=== PATIENT | female | born 1940 | race Caucasian/White ===

== ENCOUNTER 2019-10-06 00:22 | Day surgery (SDC) | payer MEDICARE, SELFPAY ==
[2019-09-22 13:10] VITALS: BMI 34.4
--- NOTE | 2019-10-05 12:53 | HP_ITS ---
DATE OF SERVICE: 10/06/2019 HISTORY: A 78-year-old who is here for a followup on her thyroid. She has 2 parathyroid adenomas of the foci of persistent activity in the area of the superior and inferior left thyroid lobe suspicious for multiple parathyroid adenomas. PHYSICAL EXAMINATION: CHEST: Clear. HEART: Without murmurs. ABDOMEN: Soft. EXTREMITIES: Negative. REVIEW OF SYSTEMS: Unremarkable. PLAN: Parathyroid exploration, parathyroidectomy. D I MT: Chikis
--- NOTE | ~2019-10-06 | NM_ITS ---
EXAMINATION: NM parathyroid injection only DATE: 10/06/2019 14:35 INDICATION: Localization of parathyroid adenoma for parathyroidectomy TECHNIQUE: 5.5 mCi Tc99m sestamibi (Cardiolite) was administered by intravenous route for localizatio n during planned parathyroidectomy by Dr. Dunn. No imaging was obtained. FINDINGS/IMPRESSION: Radiotracer injection for parathyroid adenoma localization. No imaging obtained. See procedure note f or further detail. Reviewed, dictated and finalized at location A. 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
--- NOTE | 2019-10-06 06:01 | WPDHPUPDATE1 ---
History and Physical Update Update Date/Time: 10/06/19 06:01 History and Physical has been reviewed, including an updated exam of the patient. There are NO changes in the patient's condition. Risks, benefits, and alternatives have been discussed and questions answered. Patient agrees to proceed with procedure.
[2019-10-06] MEDS: LACTATED RINGERS 1,000 ML 30 ML IV CONT ×2 (08:30→11:13)
[2019-10-06 08:37] LABS: Glucose Point of Care 103 (65-105)
--- NOTE | 2019-10-06 09:07 | WPDANESEPPF ---
Anes - Initial Pre Proc Eval Procedure: Operation Date: 10/06/19 10:30 Proposed Procedures p Parathyroid Exploration - Gasper Dunn MD Date/Time: 10/06/19 09:07 Surgeon: Gasper Dunn MD Pre Op Diagnosis: Parathyroid Adenoma Patient Data Age: 78 Gender: F Height: 5 ft 6 in Weight: 96.8 kg Allergies Allergy/AdvReac Type Severity Reaction Status Date / Time celecoxib Allergy Severe RASH Verified 09/22/19 13:01 iodine Allergy Severe Rash Verified 09/22/19 13:01 Penicillins Allergy Severe Hives / Verified 09/22/19 13:01 Red Face povidone Allergy Severe Rash Verified 09/22/19 13:01 rofecoxib Allergy Severe Rash Verified 09/22/19 13:01 Sulfa (Sulfonamide Allergy Severe Ulcers Verified 09/22/19 13:01 Antibiotics) iohexol AdvReac Mild Rash Verified 09/22/19 13:01 [From CONTRAST - CT, XRAY] Home Medications Medication Instructions Recorded Confirmed Type atorvastatin 80 mg tablet 80 mg PO DAILY #90 tablet 07/20/19 09/22/19 Rx candesartan 16 1 tablet PO DAILY #90 tablet 07/20/19 09/22/19 Rx mg-hydrochlorothiazide 12.5 mg tablet aspirin 81 mg tablet,delayed 81 mg PO DAILY #90 tablet 08/03/19 09/22/19 Rx release clopidogrel 75 mg tablet 75 mg PO DAILY #90 tablet 08/03/19 09/22/19 Rx xaho-juifs-lx4-ouo-xxl-qjtw-sterols 1 cap PO DAILY #90 cap 08/03/19 09/22/19 Rx 375 mg-100 mg-36 mg-54 mg capsule latanoprost 0.005 % eye drops 1 drop EACH EYE DAILY #2.5 ml 08/03/19 09/22/19 Rx mirabegron 25 mg tablet,extended 25 mg PO DAILY #90 tablet 08/03/19 09/22/19 Rx release 24 hr aukhdypz-iha-ggwyq acid 0.4 1 tablet PO DAILY #90 tablet 08/03/19 09/22/19 Rx mg-lycopene 300 mcg-lutein 250 mcg tablet pantoprazole 40 mg tablet,delayed 40 mg PO QAM #90 tablet 08/03/19 09/22/19 Rx release vitamin E 200 unit capsule 400 unit PO DAILY #90 cap 08/03/19 09/22/19 Rx fexofenadine 180 mg tablet 180 mg PO DAILY #90 tablet 08/14/19 09/22/19 Rx omega-3 fatty acids 1,000 mg 2,000 mg PO BID #90 cap 08/14/19 09/22/19 Rx capsule sertraline 50 mg tablet 50 mg PO DAILY #90 tablet 08/14/19 09/22/19 Rx acetaminophen [Tylenol Extra 500 mg PO BID PRN 09/22/19 09/22/19 History Strength] calcium citrate 600 mg PO BID 09/22/19 09/22/19 History inulin [Fiber Gummies] 4 g PO BID 09/22/19 09/22/19 History linagliptin [Tradjenta] 5 mg PO QAM 09/22/19 09/22/19 History multivitamin with minerals 1 tablet PO BID 09/22/19 09/22/19 History [Hair,Skin and Nails] potassium chloride 10 meq PO EVERY OTHER DAY 09/22/19 09/22/19 History amlodipine 2.5 mg tablet 2.5 mg PO DAILY #90 tablet 09/25/19 Rx Laboratory Tests 10/06/19 08:32 POC Capillary Glucose 103 mg/dl mg/dl (65-105) Patient hx anesthesia problems: none Family hx anesthesia problems: none PMFSH Past Medical History Medical History (Updated 10/06/19 @ 09:07 by Balwinder Tabor MD) Diabetes GERD (gastroesophageal reflux disease) Hypercalcemia Hyperlipidemia Hypersomnolence MIMA (obstructive sleep apnea) newly diagnosed; no CPAP Family History Family History (Updated 01/13/15 @ 09:24 by DOCTOR UNKNOWN) Father Family history of malignant neoplasm Mother Family history of heart disease in male family member before age 55 Other Diabetes mellitus Family history of allergic disorder Hypertension Social History Social History Smoking status: Never smoker Alcohol intake: never Anes - Eval Final PreProcedure Day of Procedure 10/06/19 09:07 Patient weight: obese Heart: regular rate and rhythm Lungs: clear to auscultation Airway: Mallampati scale class II Neurological: alert and oriented Last oral intake: >/= 8 hours ASA classification: III Emergent: no Anesthetic plan: proceed Anesthesia type and monitoring: general ETT and standard monitoring Informed Consent: The patient's anesthetic plan and its attendant risks and benefits were discussed with the patient/family/POA. Questions were solici
[2019-10-06 09:15] VITALS: BP 147/66; PULSE 70; RESP 20; TEMP 35.9; O2SAT 100
[2019-10-06] MEDS: LIDO 1%/EPINEPHRINE 1:100,000 20 ML VIAL 10 ML INFILTRATE (10:32)
--- NOTE | 2019-10-06 10:35 | SUR.OPER ---
FROZEN SECTION SPECIMEN SENT WITH LYNDSAY SALEH AND RECEIVED IN PATHOLOGY BY ELIE
--- NOTE | 2019-10-06 10:41 | SUR.OPER ---
ADDITIONAL TISSUE SENT WITH LYNDSAY BEASLEY FOR FROZEN SECTION RECEIVED BY JIM ADDITIONAL TISSUE # 2 SENT WITH LYNDSAY BEASLEY FROZEN SECTION
[2019-10-06 11:13] VITALS: BP 145/58; PULSE 66; RESP 19; TEMP 36.2; O2SAT 99
[2019-10-06 11:25] VITALS: BP 143/52; PULSE 62; RESP 20; O2SAT 100
--- NOTE | 2019-10-06 11:28 | PM.PROC ---
Procedure Note - Detailed Date of procedure: 10/06/19 Pre-op diagnosis: Parathyroid Adenoma Procedure performed: Patient was prepped and draped 1st general anesthesia low collar incision was made subplatysmal flaps elevated the left thyroid lobe was identified 3 parathyroid glands were identified submitted for pathologic examination and found to be positive patient awakened returned to recovery in good condition where closing layers of chromic and Monocryl Anesthesia: GLMA Surgeon: Gasper Dunn MD Estimated blood loss (mL): 5 Drains: No Pathology: yes Complications: No immediate complications Condition: stable Disposition: PACU
[2019-10-06 11:32] LABS: Glucose Point of Care 154 (65-105)
--- NOTE | 2019-10-06 11:35 | SUR.PHASEI ---
1130 - dr. hernandez at bedside. pt's voice sounds strong. speech clear. smile equal.
[2019-10-06 11:40] VITALS: BP 146/54; PULSE 63; RESP 15; O2SAT 94
[2019-10-06 11:50] VITALS: BP 149/68; PULSE 66; RESP 16
[2019-10-06 12:20] VITALS: BP 151/71; PULSE 64; RESP 16
--- NOTE | 2019-10-06 12:25 | SUR.PHASEII ---
1220; PT TAKEN TO BATHROOM PER W/C. GAIT STEADY. VOIDED.
--- NOTE | 2019-10-06 12:39 | SUR.PHASEII ---
1239; CALLED DR CHAVARRIA. PT MAY RESUME ASA AND PLAVIX IN 5 DAYS, 10-11-2019.
== END 2019-10-06 12:52 | disposition home or self-care (01) ==
PROVIDERS: PCP Internal Medicine; Visit Provider Otolaryngology
PROC: (CPT 60500; principal; 2019-10-06 10:30)
DX: D35.1 Benign neoplasm of parathyroid gland (principal); E11.9 Type 2 diabetes mellitus without complications; K21.9 Gastro-esophageal reflux disease without esophagitis; E78.5 Hyperlipidemia, unspecified; G47.33 Obstructive sleep apnea (adult) (pediatric); E83.52 Hypercalcemia; Z79.82 Long term (current) use of aspirin; E66.9 Obesity, unspecified; Z68.34 Body mass index [BMI] 34.0-34.9, adult; Z79.84 Long term (current) use of oral hypoglycemic drugs
CPT/HCPCS: 60500; 78808; 88305; 88331; A9270; A9500; J0131; J0330; J1100; J2405; J2704; J7120

== ENCOUNTER 2019-12-11 09:37 | Outpatient (CLI) | payer MEDICARE, SELFPAY ==
[2019-12-11 10:05] LABS: Basophils Percent Auto 0.7 % (0.2-1.2); Eosinophils Absolute Auto 0.4 K/mm3 (0-0.3); Eosinophils Percent Auto 6.1 % (0-4.4); Hematocrit 36.3 % (37.0-47.0); Hemoglobin 11.9 g/dL (12.0-15.0); Immature Granulocyte Absolute 0.03 K/mm3 (0.00-0.031); Immature Granulocyte Percent A 0.5 % (0-0.5); Lymphocytes Absolute Auto 1.35 K/mm3 (0.9-3.2); Lymphocytes Percent Auto 22.3 % (18.3-44.2); Mean Corpuscular HGB Conc 32.8 g/dl (32-36); Mean Corpuscular Hemoglobin 31.5 pg (26-34); Mean Platelet Volume 10.8 fl (7.4-10.4); Monocytes Absolute Auto 0.4 K/mm3 (0.1-0.6); Monocytes Percent Auto 7.1 % (2.6-8.5); Neutrophils Absolute Auto 3.8 K/mm3 (1.3-6.7); Neutrophils Percent Auto 63.3 % (45.5-73.1); Platelet Count Result 175 k/mm3 (150-375); Red Blood Count 3.78 M/mm3 (4.2-5.4); Red Cell Distribution Width 12.9 % (11.5-14.5); White Blood Count 6.1 K/mm3 (4.5-10.0)
[2019-12-11 10:16] LABS: Hemoglobin A1C 5.9 % (<5.7)
[2019-12-11 10:17] LABS: Blood Urea Nitrogen 18 mg/dL (7-17); Calcium 9.5 mg/dL (8.4-10.2); Carbon Dioxide 25 mmol/L (22-30); Chloride 109 mmol/L (98-107); Cholesterol 129 mg/dL (0-200); Estimated Glomerular Filt Rate > 60; Glucose 114 mg/dL (65-105); HDL Direct 45 mg/dL; Potassium 4.1 mmol/L (3.4-5.0); Sodium 141 mmol/L (137-145); Triglycerides 98 mg/dL (<150)
[2019-12-11 10:28] LABS: LDL Cholesterol Direct 51 mg/dL
== END 2019-12-11 09:38 | disposition home or self-care (01) ==
PROVIDERS: PCP Internal Medicine; Visit Provider Internal Medicine
DX: E11.9 Type 2 diabetes mellitus without complications (principal); I10 Essential (primary) hypertension; E78.5 Hyperlipidemia, unspecified
CPT/HCPCS: 36415; 80048; 80061; 83036; 85025

== ENCOUNTER 2020-04-15 09:01 | Outpatient (CLI) | payer MEDICARE, SELFPAY ==
[2020-04-15 10:02] LABS: Anion Gap 8 mmol/L (8-16); Blood Urea Nitrogen 25 mg/dL (7-17); Calcium 9.6 mg/dL (8.4-10.2); Carbon Dioxide 26 mmol/L (22-30); Chloride 106 mmol/L (98-107); Cholesterol 147 mg/dL (0-200); Estimated Glomerular Filt Rate 54; Glucose 113 mg/dL (65-105); HDL Direct 50 mg/dL; Potassium 4.2 mmol/L (3.4-5.0); Sodium 140 mmol/L (137-145); Triglycerides 89 mg/dL (<150)
[2020-04-15 10:03] LABS: Hemoglobin A1C 5.7 % (<5.7)
[2020-04-15 10:18] LABS: LDL Cholesterol Direct 61 mg/dL
[2020-04-15 10:35] LABS: Creatinine Urine 93.2 mg/dL
[2020-04-15 10:39] LABS: MALB Creatinine Ratio 33.5 mg/g (0-30); Microalbumin Urine Random 31.2 mg/L (0-16.7)
== END 2020-04-15 09:02 | disposition home or self-care (01) ==
PROVIDERS: PCP Internal Medicine; Visit Provider Internal Medicine
DX: E78.2 Mixed hyperlipidemia (principal); I10 Essential (primary) hypertension; E11.9 Type 2 diabetes mellitus without complications
CPT/HCPCS: 36415; 80048; 80061; 82043; 83036

== ENCOUNTER 2020-08-15 09:20 | Outpatient (CLI) | payer MEDICARE, SELFPAY ==
[2020-08-15 09:52] LABS: Basophils Absolute Auto 0.1 K/mm3 (0.0-0.1); Basophils Percent Auto 0.8 % (0.2-1.2); Eosinophils Absolute Auto 0.2 K/mm3 (0-0.3); Hematocrit 37.2 % (37.0-47.0); Hemoglobin 12.2 g/dL (12.0-15.0); Immature Granulocyte Absolute 0.03 K/mm3 (0.00-0.031); Immature Granulocyte Percent A 0.5 % (0-0.5); Lymphocytes Percent Auto 25.1 % (18.3-44.2); Mean Corpuscular HGB Conc 32.8 g/dl (32-36); Mean Corpuscular Hemoglobin 32.3 pg (26-34); Mean Corpuscular Volume 98.4 fl (80-100); Mean Platelet Volume 10.7 fl (7.4-10.4); Monocytes Absolute Auto 0.5 K/mm3 (0.1-0.6); Monocytes Percent Auto 7.9 % (2.6-8.5); Neutrophils Absolute Auto 3.7 K/mm3 (1.3-6.7); Neutrophils Percent Auto 61.7 % (45.5-73.1); Platelet Count Result 169 k/mm3 (150-375); Red Blood Count 3.78 M/mm3 (4.2-5.4); Red Cell Distribution Width 13.2 % (11.5-14.5)
[2020-08-15 10:01] LABS: Potassium 4.1 mmol/L (3.4-5.0)
[2020-08-15 10:04] LABS: Hemoglobin A1C 5.5 % (<5.7)
[2020-08-15 10:09] LABS: Anion Gap 5 mmol/L (8-16); Blood Urea Nitrogen 17 mg/dL (7-17); Calcium 9.9 mg/dL (8.4-10.2); Carbon Dioxide 28 mmol/L (22-30); Chloride 109 mmol/L (98-107); Cholesterol 132 mg/dL (0-200); Estimated Glomerular Filt Rate > 60; Glucose 120 mg/dL (65-105); HDL Direct 49 mg/dL; Sodium 142 mmol/L (137-145); Triglycerides 115 mg/dL (<150)
[2020-08-15 10:13] LABS: LDL Cholesterol Direct 45 mg/dL
== END 2020-08-15 09:21 | disposition home or self-care (01) ==
PROVIDERS: PCP Internal Medicine; Visit Provider Internal Medicine
DX: I25.10 Atherosclerotic heart disease of native coronary artery without angina pectoris (principal); I10 Essential (primary) hypertension; E11.9 Type 2 diabetes mellitus without complications; K21.9 Gastro-esophageal reflux disease without esophagitis; E78.2 Mixed hyperlipidemia; Z79.899 Other long term (current) drug therapy
CPT/HCPCS: 36415; 80048; 80061; 83036; 84443; 85025

== ENCOUNTER 2020-08-22 11:58 | Outpatient (CLI) | payer MEDICARE, SELFPAY ==
--- NOTE | ~2020-08-22 | US_ITS ---
EXAMINATION: US venous doppler [facility] EXAM DATE: 08/22/2020 12:34 INDICATION: M79.605 - Pain in left leg. Evaluate popliteal space. TECHNIQUE: Multiple grayscale, color flow and Doppler images of the left lower extremity deep venous system were obtained and reviewed. Comparison is made to prior examination from 10/22/2014. FINDINGS: The left common femoral, femoral and profunda veins demonstrate normal color flow, respirat ory variation, augmentation and compressibility. Compressibility, color flow confirmed within the le ft popliteal, posterior tibial, peroneal, and greater saphenous veins. Small anechoic region likely Huerta's cyst measuring 1.4 x 1.0 x 0.5 cm. IMPRESSION: 1. No left lower extremity deep venous thrombosis. 2. Small anechoic popliteal fossa region probably Huerta's cyst. Reviewed, dictated and finalized at location B. 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
== END 2020-08-22 11:59 | disposition home or self-care (01) ==
PROVIDERS: PCP Internal Medicine; Visit Provider Internal Medicine
DX: M79.605 Pain in left leg (principal); M79.89 Other specified soft tissue disorders
CPT/HCPCS: 93971

== ENCOUNTER 2020-08-29 09:50 | Outpatient (CLI) | payer MEDICARE, SELFPAY ==
[2020-08-29 10:58] LABS: Anion Gap 9 mmol/L (8-16); Blood Urea Nitrogen 35 mg/dL (7-17); Calcium 9.6 mg/dL (8.4-10.2); Carbon Dioxide 29 mmol/L (22-30); Chloride 105 mmol/L (98-107); Estimated Glomerular Filt Rate 48; Glucose 119 mg/dL (65-105); Potassium 4.4 mmol/L (3.4-5.0); Sodium 143 mmol/L (137-145)
== END 2020-08-29 09:51 | disposition home or self-care (01) ==
LOC: ANHLAB 09:52
PROVIDERS: PCP Internal Medicine; Visit Provider Internal Medicine
DX: I10 Essential (primary) hypertension (principal)
CPT/HCPCS: 36415; 80048

== ENCOUNTER 2021-01-06 08:10 | Outpatient (CLI) | payer MEDICARE, SELFPAY ==
[2021-01-06 08:41] LABS: Anion Gap 8 mmol/L (8-16); Blood Urea Nitrogen 31 mg/dL (7-17); Calcium 9.4 mg/dL (8.4-10.2); Carbon Dioxide 23 mmol/L (22-30); Chloride 111 mmol/L (98-107); Cholesterol 132 mg/dL (0-200); Estimated Glomerular Filt Rate 48; Glucose 107 mg/dL (65-105); HDL Direct 49 mg/dL; Potassium 4.4 mmol/L (3.4-5.0); Sodium 142 mmol/L (137-145); Triglycerides 92 mg/dL (<150)
[2021-01-06 08:43] LABS: Hemoglobin A1C 6.1 % (<5.7)
[2021-01-06 08:52] LABS: Add Urine Microscopic? YES; Appearance Urine Cloudy (Clear); Bacteria Urine 2+ /hpf; Bilirubin Urine Negative (Negative); Blood Urine Negative (Negative); Color Urine Yellow (Yellow); Glucose Urine UA Negative (Negative); Ketones Urine Negative (Negative); LDL Cholesterol Direct 47 mg/dL; Leukocyte Esterase Ur 2+ LEU/UL (NEGATIVE); Mucus Urine Rare /lpf; Nitrate Urine Positive (Negative); Protein Urine Negative (Negative); Specific Grav Ur 1.016 (1.001-1.035); Squamous Epithelial Cell Urine Occasional /hpf (Few); Urobilinogen Urine Negative mg/dL (<2.0); WBC Clumps Urine Present /HPF; WBC Urine >75 /hpf (0-3)
[2021-01-06 09:12] LABS: Thyroid Stimulating Hormone 0.413 uIU/mL (0.465-4.680)
== END 2021-01-06 08:11 | disposition home or self-care (01) ==
PROVIDERS: PCP Internal Medicine; Visit Provider Internal Medicine
DX: I10 Essential (primary) hypertension (principal); E78.2 Mixed hyperlipidemia; E11.9 Type 2 diabetes mellitus without complications; Z79.899 Other long term (current) drug therapy
CPT/HCPCS: 36415; 80048; 80061; 81001; 83036; 84443

== ENCOUNTER 2021-03-13 15:51 | Outpatient (CLI) | payer MEDICARE, SELFPAY ==
--- NOTE | ~2021-03-13 | XR_ITS ---
XR pelvis 1-2V DATE: 03/13/2021 16:54 INDICATION: Fall one week ago. Pelvic, back pain TECHNIQUE: AP pelvis COMPARISON: None FINDINGS: Diffuse osteopenia. Mild levoscoliosis and severe degenerative disease of the lumbar spine. There is some degenerative change at the sacral iliac joints but no fracture or dislocation. The pubi c symphysis is intact. Osteoarthritic changes are noted joints, right greater than left. There is some heterotopic ossification along the superior aspect of the right greater trochanter. No pelvic fracture or bone destruction is evident. No recent fracture or dislocation at either hip is evident. IMPRESSION: Osteopenia Bilateral hip osteoarthritic arthritis, right greater than left Mild levoscoliosis of the lumbar spine Severe degenerative disease of the lumbar and lumbosacral spine Reviewed, dictated and finalized at location B.
--- NOTE | ~2021-03-13 | XR_ITS ---
XR_CERV2-3V_CR DATE: 03/13/2021 16:52 INDICATION: Neck pain. Patient fell one week ago. TECHNIQUE: AP, open-mouth, lateral, odontoid views COMPARISON: None FINDINGS: C1 and C2 are normally aligned and the odontoid process is intact. No fracture or dislocati on or locked facet or prevertebral soft tissue swelling. There is moderately prominent degenerative disc disease at C5-6 with minimal retrolisthesis at this l evel. There is minimal anterolisthesis at C6-7. IMPRESSION: Degenerative disc disease at C5-6 with associated minimal retrolisthesis Minimal anterolisthesis at C6-7 Reviewed, dictated and finalized at Location A. Reviewed, dictated and finalized at location B. IMPRESSION: Degenerative disc disease at C5-6 with associated minimal retrolist hesis Minimal anterolisthesis at C6-7
--- NOTE | ~2021-03-13 | XR_ITS ---
XR shoulder LT min 2V DATE: 03/13/2021 16:53 INDICATION: Left shoulder pain. Patient fell one week ago. TECHNIQUE: 4 views COMPARISON: None FINDINGS: Diffuse osteopenia. Prominent degenerative spurring at the, clavicular joint. Prominent joint space narrowing and spurring at the left glenohumeral joint. No fracture or dislocation, periosteal reaction or bone destruction or significant abnormal left shou lder soft tissue calcification is noted. IMPRESSION: Prominent degenerative changes at the left acromioclavicular and glenohumeral joints Osteopenia No fracture or dislocation Reviewed, dictated and finalized at location B. IMPRESSION: Prominent degenerative changes at the left acromioclavicular and gl enohumeral joints Osteopenia No fracture or dislocation
--- NOTE | ~2021-03-13 | XR_ITS ---
XR thoracic spine 3V DATE: 03/13/2021 16:51 INDICATION: Back pain. Fall one week ago. TECHNIQUE: AP, lateral, swimmer views COMPARISON: 11/23/2014 thoracic spine FINDINGS: There is mild dextroscoliosis. There is degenerative spurring throughout the thoracic spine . No interval fracture or bone destruction is evident since 11/23/2014. The thoracic pedicles are inta ct. No paraspinal soft tissue thickening. IMPRESSION: Scoliosis, osteopenia and degenerative spurring of the thoracic spine No recent fracture is evident; no significant change since 11/23/2014 Reviewed, dictated and finalized at location B. IMPRESSION: Scoliosis, osteopenia and degenerative spurring of the thoracic spi ne No recent fracture is evident; no significant change since 11/23/2014
--- NOTE | ~2021-03-13 | XR_ITS ---
XR lumbar spine 2-3V DATE: 03/13/2021 16:53 INDICATION: Patient fell one week ago. Low back pain. TECHNIQUE: AP, lateral and coned lateral lumbosacral views COMPARISON: 02/17/2018 MRI lumbar spine 11/27/2014 CT abdomen pelvis FINDINGS: Diffuse osteopenia. There is mild levoscoliosis of the lumbar spine. There is chronic moderate compression fracture deformity of L3, present on 11/27/2014. No interval fracture is evident. No bone destruction is detected. The lumbar pedicles are intact. There is moderate degenerative disease at L1 to and severe degenerative disc disease throughout the r emainder of the lumbar and sacral spine. There is degenerative change at the apophyseal joints with a ssociated grade 1 anterolisthesis at L4-5. The sacroiliac joints appear normal. Bilateral hip osteoarthritis. IMPRESSION: Chronic L3 compression fracture deformity, stable since 11/19/2014 Severe degenerative disc disease, chronic Mild levoscoliosis Osteopenia Reviewed, dictated and finalized at location B.
== END 2021-03-13 15:52 | disposition home or self-care (01) ==
PROVIDERS: PCP Internal Medicine; Visit Provider Internal Medicine
DX: M54.5 Low back pain (principal); W19.XXXA Unspecified fall, initial encounter; M25.512 Pain in left shoulder; M16.0 Bilateral primary osteoarthritis of hip; M41.86 Other forms of scoliosis, lumbar region; M51.36 Other intervertebral disc degeneration, lumbar region; M48.56XA Collapsed vertebra, not elsewhere classified, lumbar region, initial encounter for fracture; M50.322 Other cervical disc degeneration at C5-C6 level; M43.12 Spondylolisthesis, cervical region; M85.89 Other specified disorders of bone density and structure, multiple sites
CPT/HCPCS: 72040; 72072; 72100; 72170; 73030

== ENCOUNTER → 2021-05-19 08:42 | Outpatient (CLI) | payer MEDICARE, SELFPAY ==
[2021-05-19 19:38] LABS: SARS-CoV-2 RNA PCR Negative
== END ==
PROVIDERS: PCP Internal Medicine; Visit Provider Internal Medicine
DX: Z20.822 Contact with and (suspected) exposure to COVID-19 (principal)
CPT/HCPCS: C9803; U0003; U0005

== ENCOUNTER 2021-05-23 09:26 | Outpatient (CLI) | payer MEDICARE, SELFPAY ==
[2021-05-23 10:14] LABS: Basophils Absolute Auto 0.1 K/mm3 (0.0-0.1); Basophils Percent Auto 0.9 % (0.2-1.2); Eosinophils Absolute Auto 0.4 K/mm3 (0-0.3); Eosinophils Percent Auto 6.5 % (0-4.4); Hematocrit 36.3 % (37.0-47.0); Hemoglobin 11.5 g/dL (12.0-15.0); Immature Granulocyte Absolute 0.04 K/mm3 (0.00-0.031); Immature Granulocyte Percent A 0.7 % (0-0.5); Lymphocytes Absolute Auto 1.34 K/mm3 (0.9-3.2); Lymphocytes Percent Auto 23.7 % (18.3-44.2); Mean Corpuscular HGB Conc 31.7 g/dl (32-36); Mean Corpuscular Hemoglobin 31.9 pg (26-34); Mean Corpuscular Volume 100.8 fl (80-100); Mean Platelet Volume 11.1 fl (7.4-10.4); Monocytes Absolute Auto 0.4 K/mm3 (0.1-0.6); Monocytes Percent Auto 7.4 % (2.6-8.5); Neutrophils Absolute Auto 3.4 K/mm3 (1.3-6.7); Neutrophils Percent Auto 60.8 % (45.5-73.1); Platelet Count Result 161 k/mm3 (150-375); Red Cell Distribution Width 13.7 % (11.5-14.5); White Blood Count 5.7 K/mm3 (4.5-10.0)
[2021-05-23 10:23] LABS: Bacteria Urine Trace /hpf; Mucus Urine Rare /lpf; RBC Urine 0-2 /hpf (0-2)
[2021-05-23 10:27] LABS: Add Urine Microscopic? YES; Appearance Urine Clear (Clear); Bilirubin Urine Negative (Negative); Blood Urine Negative (Negative); Color Urine Yellow (Yellow); Glucose Urine UA Negative (Negative); Ketones Urine Negative (Negative); Leukocyte Esterase Ur 1+ LEU/UL (Negative); Nitrate Urine Positive (Negative); Protein Urine Negative (Negative); Specific Grav Ur 1.018 (1.001-1.035); Urobilinogen Urine Negative mg/dL (<2.0)
[2021-05-23 10:31] LABS: Alanine Aminotransferase 19 U/L (4-35); Albumin Level 4.3 g/dL (3.5-5.1); Alkaline Phosphatase 107 U/L (38-126); Anion Gap 10 mmol/L (8-16); Aspartate Amino Transferase 28 U/L (14-36); Bilirubin,Total 0.6 mg/dL (0.2-1.3); Blood Urea Nitrogen 33 mg/dL (7-17); Calcium 9.8 mg/dL (8.4-10.2); Carbon Dioxide 23 mmol/L (22-30); Chloride 110 mmol/L (98-107); Cholesterol 138 mg/dL (0-200); Estimated Glomerular Filt Rate 54; Glucose 110 mg/dL (65-110); HDL Direct 45 mg/dL; Potassium 4.5 mmol/L (3.4-5.0); Sodium 143 mmol/L (137-145); Triglycerides 106 mg/dL (<150)
[2021-05-23 10:42] LABS: LDL Cholesterol Direct 49 mg/dL
[2021-05-23 11:02] LABS: Hemoglobin A1C 5.8 % (<5.7)
[2021-05-27 14:41] LABS: Vitamin D 1,25 (OH)2 Total 21 pg/mL (18-72); Vitamin D2 1,25 (OH)2 <8 pg/mL; Vitamin D3 1,25 (OH)2 21 pg/mL
== END 2021-05-23 09:27 | disposition home or self-care (01) ==
PROVIDERS: PCP Internal Medicine; Visit Provider Internal Medicine
DX: Z51.81 Encounter for therapeutic drug level monitoring (principal); Z79.899 Other long term (current) drug therapy; E55.9 Vitamin D deficiency, unspecified; E11.9 Type 2 diabetes mellitus without complications; I10 Essential (primary) hypertension; E78.2 Mixed hyperlipidemia
CPT/HCPCS: 36415; 80053; 80061; 81001; 82652; 83036; 85025; 87077; 87086; 87088; 87186

== ENCOUNTER 2021-06-15 13:48 | Outpatient (CLI) | payer MEDICARE, SELFPAY ==
--- NOTE | ~2021-06-15 | US_ITS ---
EXAMINATION: US carotid duplex BI DATE: 06/15/2021 14:23 INDICATION: Other specified symptoms and signs involving the circulatory system. TECHNIQUE: Grayscale, color Doppler, and pulsed Doppler images of the cervical carotid arteries were obtained. The degree of vessel stenosis is placed in one of the following categories: normal, <50%, 5 0-69%, >=70% but less than near-occlusion, near-occlusion, or total occlusion. Note that percent sten osis relative to normal distal artery lumen diameter is indirectly measured from velocity measurement s as described by Vinny, et al. Radiology 2003; 229:340-346. COMPARISON: None. FINDINGS: RIGHT: The right common carotid artery (CCA) peak systolic velocity (PSV) is 150 cm/s. The right internal ca rotid artery (ICA) PSV is 108 cm/s. The right ICA end-diastolic velocity (EDV) is 22 cm/s. The right ICA/CCA PSV ratio is 0.7. Grayscale and color Doppler images yield an estimate of <50% diameter reduc tion from plaque in the ICA. There is antegrade flow in the right vertebral artery. LEFT: The left CCA PSV is 101 cm/s. The left ICA PSV is 83 cm/s. The left ICA EDV is 23 cm/s. The left ICA/ CCA PSV ratio is 0.8. Grayscale and color Doppler images yield an estimate of <50% diameter reduction from plaque in the ICA. There is antegrade flow in the left vertebral artery. IMPRESSION: 1. <50% stenosis in the right internal carotid artery. 2. <50% stenosis in the left internal carotid artery. Reviewed, dictated and finalized at location A.
== END 2021-06-15 13:49 | disposition home or self-care (01) ==
LOC: ANHIMG 13:49
PROVIDERS: PCP Internal Medicine; Visit Provider Internal Medicine
DX: R09.89 Other specified symptoms and signs involving the circulatory and respiratory systems (principal); I65.23 Occlusion and stenosis of bilateral carotid arteries
CPT/HCPCS: 93880

== ENCOUNTER 2021-10-11 08:43 | Outpatient (CLI) | payer MEDICARE, SELFPAY ==
[2021-10-11 09:44] LABS: Hemoglobin A1C 5.9 % (<5.7)
[2021-10-11 09:57] LABS: Creatinine Urine 138.9 mg/dL
[2021-10-11 09:58] LABS: Alanine Aminotransferase 20 U/L (4-35); Albumin Level 4.3 g/dL (3.5-5.1); Alkaline Phosphatase 99 U/L (38-126); Anion Gap 10 mmol/L (8-16); Aspartate Amino Transferase 29 U/L (14-36); Bilirubin,Total 0.4 mg/dL (0.2-1.3); Blood Urea Nitrogen 37 mg/dL (7-17); Carbon Dioxide 20 mmol/L (22-30); Chloride 111 mmol/L (98-107); Cholesterol 135 mg/dL (0-200); Estimated Glomerular Filt Rate 43; Glucose 123 mg/dL (65-110); HDL Direct 44 mg/dL; Potassium 4.2 mmol/L (3.4-5.0); Sodium 141 mmol/L (137-145); Triglycerides 116 mg/dL (<150)
[2021-10-11 10:00] LABS: MALB Creatinine Ratio < 4.3 mg/g (0-30); Microalbumin Urine Random < 6.0 mg/L (0-16.7)
[2021-10-11 10:01] LABS: LDL Cholesterol Direct 47 mg/dL
[2021-10-11 10:10] LABS: Add Urine Microscopic? YES; Appearance Urine Clear (Clear); Bilirubin Urine Negative (Negative); Blood Urine Negative (Negative); Color Urine Yellow (Yellow); Glucose Urine UA Negative (Negative); Ketones Urine Negative (Negative); Leukocyte Esterase Ur Trace LEU/UL (Negative); Mucus Urine Rare /lpf; Nitrate Urine Negative (Negative); Protein Urine Negative (Negative); Specific Grav Ur 1.018 (1.001-1.035); Squamous Epithelial Cell Urine Rare /hpf (Few); Urobilinogen Urine Negative mg/dL (<2.0)
[2021-10-11 10:18] LABS: Thyroid Stimulating Hormone 0.119 uIU/mL (0.465-4.680)
== END 2021-10-11 08:44 | disposition home or self-care (01) ==
PROVIDERS: PCP Internal Medicine; Visit Provider Internal Medicine
DX: E11.9 Type 2 diabetes mellitus without complications (principal); Z51.81 Encounter for therapeutic drug level monitoring; Z79.899 Other long term (current) drug therapy; I10 Essential (primary) hypertension; E78.2 Mixed hyperlipidemia
CPT/HCPCS: 36415; 80053; 80061; 81001; 82043; 83036; 84439; 84443; 87086

== ENCOUNTER 2021-12-15 08:51 | Outpatient (CLI) | payer MEDICARE, SELFPAY ==
--- NOTE | ~2021-12-15 | XR_ITS ---
EXAMINATION: XR chest 2V EXAM DATE: 12/15/2021 09:13 INDICATION: R07.1 -Chest pain on breathing . TECHNIQUE: Frontal and lateral projections of the chest obtained and reviewed. Comparison is made to prior examination from 02/18/2015. FINDINGS: Moderate thoracic dextroscoliosis, thoracolumbar levoscoliosis. Scattered calcified granul omata. The lungs are otherwise clear. There are no pleural effusions. The cardiomediastinal silhoue tte is within normal limits. There is no pneumothorax suspected. Patient has diffuse idiopathic ske letal hyperostosis (DISH). There is no significant interval change. IMPRESSION: No acute cardiopulmonary findings. Reviewed, dictated and finalized at location D.
== END 2021-12-15 08:52 | disposition home or self-care (01) ==
PROVIDERS: PCP Internal Medicine; Visit Provider Internal Medicine
DX: R07.1 Chest pain on breathing (principal)
CPT/HCPCS: 71046

== ENCOUNTER 2022-03-08 08:26 | Outpatient (CLI) | payer MEDICARE, SELFPAY ==
[2022-03-08 08:51] LABS: Basophils Absolute Auto 0.1 K/mm3 (0.0-0.1); Basophils Percent Auto 1.4 % (0.2-1.2); Eosinophils Absolute Auto 0.4 K/mm3 (0-0.3); Eosinophils Percent Auto 6.4 % (0-4.4); Hematocrit 35.6 % (37.0-47.0); Immature Granulocyte Absolute 0.03 K/mm3 (0.00-0.031); Immature Granulocyte Percent A 0.5 % (0-0.5); Lymphocytes Absolute Auto 1.58 K/mm3 (0.9-3.2); Lymphocytes Percent Auto 27.2 % (18.3-44.2); Mean Corpuscular HGB Conc 33.7 g/dl (32-36); Mean Corpuscular Hemoglobin 32.1 pg (26-34); Mean Corpuscular Volume 95.2 fl (80-100); Mean Platelet Volume 10.5 fl (7.4-10.4); Monocytes Absolute Auto 0.5 K/mm3 (0.1-0.6); Neutrophils Absolute Auto 3.2 K/mm3 (1.3-6.7); Neutrophils Percent Auto 55.5 % (45.5-73.1); Platelet Count Result 179 k/mm3 (150-375); Red Blood Count 3.74 M/mm3 (4.2-5.4); Red Cell Distribution Width 13.3 % (11.5-14.5); White Blood Count 5.8 K/mm3 (4.5-10.0)
[2022-03-08 09:05] LABS: Alanine Aminotransferase 18 U/L (6-35); Albumin Level 4.1 g/dL (3.5-5.1); Alkaline Phosphatase 93 U/L (38-126); Anion Gap 6 mmol/L (8-16); Aspartate Amino Transferase 28 U/L (14-36); Bilirubin,Total 0.5 mg/dL (0.2-1.3); Blood Urea Nitrogen 26 mg/dL (7-17); Calcium 9.5 mg/dL (8.4-10.2); Carbon Dioxide 22 mmol/L (22-30); Chloride 112 mmol/L (98-107); Cholesterol 141 mg/dL (0-200); Estimated Glomerular Filt Rate 60; Glucose 112 mg/dL (65-110); HDL Direct 42 mg/dL; Potassium 4.3 mmol/L (3.4-5.0); Sodium 140 mmol/L (137-145); Triglycerides 98 mg/dL (<150)
[2022-03-08 09:15] LABS: Hemoglobin A1C 5.8 % (<5.7)
[2022-03-08 09:16] LABS: LDL Cholesterol Direct 52 mg/dL
[2022-03-08 09:31] LABS: Creatinine Urine 94.4 mg/dL
[2022-03-08 09:47] LABS: Free T4 Free Thyroxine 1.12 ng/mL (0.78-2.19)
[2022-03-08 10:05] LABS: MALB Creatinine Ratio < 6.4 mg/g (0-30); Microalbumin Urine Random < 6.0 mg/L (0-16.7)
== END 2022-03-08 08:27 | disposition home or self-care (01) ==
LOC: ANHLAB 08:33
PROVIDERS: PCP Internal Medicine; Visit Provider Internal Medicine
DX: E11.9 Type 2 diabetes mellitus without complications (principal); I10 Essential (primary) hypertension; Z13.29 Encounter for screening for other suspected endocrine disorder; Z79.899 Other long term (current) drug therapy; E78.2 Mixed hyperlipidemia
CPT/HCPCS: 36415; 80053; 80061; 82043; 83036; 84439; 84443; 85025

== ENCOUNTER 2022-04-24 13:29 | Outpatient (CLI) | payer MEDICARE, SELFPAY ==
[2022-04-24 14:07] LABS: Appearance Urine Clear (Clear); Bilirubin Urine Negative (Negative); Blood Urine Negative (Negative); Color Urine Yellow (Yellow); Glucose Urine UA Negative (Negative); Ketones Urine Negative (Negative); Leukocyte Esterase Ur 1+ LEU/UL (Negative); Nitrate Urine Negative (Negative); Protein Urine Negative (Negative); Urobilinogen Urine 0.2 mg/dL (<2.0); pH Urine 5.5 (5.0-9.0)
[2022-04-24 14:18] LABS: Mucus Urine Rare /lpf; Squamous Epithelial Cell Urine Rare /hpf (Few)
[2022-04-24 14:47] LABS: Add Urine Microscopic? YES
== END 2022-04-24 13:30 | disposition home or self-care (01) ==
PROVIDERS: PCP Internal Medicine; Visit Provider Internal Medicine
DX: R39.9 Unspecified symptoms and signs involving the genitourinary system (principal)
CPT/HCPCS: 81001; 87086

== ENCOUNTER 2022-05-01 15:16 | Outpatient (CLI) | payer MEDICARE, SELFPAY ==
--- NOTE | ~2022-05-01 | CT_ITS ---
EXAMINATION: CT abdomen pelvis wo con DATE: 05/01/2022 15:43 INDICATION: Left abdominal and flank pain, back pain TECHNIQUE: Computed tomography (CT) of the abdomen and pelvis was performed without intravenous contr ast. Automated exposure control and iterative reconstruction technique were employed. Exam dose: 137 5.68 mGy-cm total exam DLP. COMPARISON: 09/04/2018 CT abdomen pelvis with IV contrast material FINDINGS: Calcified pulmonary granulomas of middle and left lower lobes and calcified splenic granulo mas, consistent with old granulomatous disease. Normal heart size. Coronary artery calcifications. No pericardial or pleural effusion. 9 mm right hepatic cyst. Normal splenic size. No pancreatic mass lesion or calcification. The gallbladder is absent. No bile duct or pancreatic duct dilatation. Normal morphology of the adrenal glands. Numerous bilateral hyperdense probable renal cysts measuring up to approximately 1.3 cm maximal dimen slava on each side. No urinary tract calculus or hydroureteronephrosis. There is extensive calcification of the abdominal aorta. No intraperitoneal or retroperitoneal or pel joyce mass lesion or adenopathy or ascites. The urinary bladder is unremarkable. Status post hysterecto my. Diverticulosis of left and right colon; no CT evidence of diverticulitis. The appendix is likely surg ically absent. No bowel obstruction or intraperitoneal free air. Chronic T12 and L3 compression fracture deformities. Interval new mild T9 compression fracture deform ities since 09/04/2018. Diffuse idiopathic skeletal hyperostosis of the thoracolumbar spine. Severe degenerative disc disease throughout the lumbar and lumbosacral spine. There are prominent hypertrophic change of the apophyse al joints with associated grade 1 anterolisthesis at L4-5. Bilateral hip osteoarthritis. IMPRESSION: New T9 mild compression fracture since 09/04/2018; chronic T12 and L3 compression fracture s Extensive degenerative changes of the thoracic and lumbar spine. 9 mm hepatic cyst Numerous bilateral hyperdense probable renal cysts Status post hysterectomy, probable appendectomy Diverticulosis of left and right colon; no diverticulitis Dr. Gill telephoned the report to Dr. Perkins on 05/01/2022 at 1603 hours. Reviewed, dictated and finalized at [facility]. Reviewed, dictated and finalized at location [facility]. IMPRESSION: New T9 mild compression fracture since 09/04/2018; chronic T12 and L 3 compression fractures Extensive degenerative changes of the thoracic and lumbar spine. 9 mm hepatic cyst Numerous bilateral hyperdense probable renal cysts Status post hysterectomy, probable appendectomy Diverticulosis of left and right colon; no diverticulitis Dr. Gill telephoned the report to Dr. Perkins on 05/01/2022 at 1603 hours.
== END 2022-05-01 15:17 | disposition home or self-care (01) ==
PROVIDERS: PCP Internal Medicine; Visit Provider Internal Medicine
DX: M54.9 Dorsalgia, unspecified (principal); R10.9 Unspecified abdominal pain; Z90.49 Acquired absence of other specified parts of digestive tract; M48.54XA Collapsed vertebra, not elsewhere classified, thoracic region, initial encounter for fracture; M85.88 Other specified disorders of bone density and structure, other site; K76.89 Other specified diseases of liver; K57.90 Diverticulosis of intestine, part unspecified, without perforation or abscess without bleeding; Z90.710 Acquired absence of both cervix and uterus
CPT/HCPCS: 74176

== ENCOUNTER 2022-07-18 08:20 | Outpatient (CLI) | payer MEDICARE, SELFPAY ==
[2022-07-18 09:08] LABS: Alanine Aminotransferase 23 U/L (6-35); Albumin Level 4.2 g/dL (3.5-5.1); Alkaline Phosphatase 83 U/L (38-126); Anion Gap 9 mmol/L (8-16); Aspartate Amino Transferase 31 U/L (14-36); Bilirubin,Total 0.6 mg/dL (0.2-1.3); Blood Urea Nitrogen 31 mg/dL (7-17); Calcium 9.5 mg/dL (8.4-10.2); Carbon Dioxide 26 mmol/L (22-30); Chloride 107 mmol/L (98-107); Cholesterol 145 mg/dL (0-200); Estimated Glomerular Filt Rate 40; Glucose 110 mg/dL (65-110); HDL Direct 52 mg/dL; Potassium 4.4 mmol/L (3.4-5.0); Sodium 142 mmol/L (137-145); Triglycerides 91 mg/dL (<150)
[2022-07-18 09:18] LABS: LDL Cholesterol Direct 57 mg/dL
[2022-07-18 09:37] LABS: Hemoglobin A1C 6.1 % (<5.7)
== END 2022-07-18 08:21 | disposition home or self-care (01) ==
PROVIDERS: PCP Internal Medicine; Visit Provider Internal Medicine
DX: E11.9 Type 2 diabetes mellitus without complications (principal); E78.2 Mixed hyperlipidemia; I10 Essential (primary) hypertension
CPT/HCPCS: 36415; 80053; 80061; 83036

== ENCOUNTER 2022-07-30 09:35 | Outpatient (CLI) | payer MEDICARE, SELFPAY ==
[2022-07-30 10:10] LABS: Anion Gap 11 mmol/L (8-16); Blood Urea Nitrogen 21 mg/dL (7-17); Calcium 9.1 mg/dL (8.4-10.2); Carbon Dioxide 26 mmol/L (22-30); Chloride 108 mmol/L (98-107); Estimated Glomerular Filt Rate 53; Glucose 111 mg/dL (65-110); Potassium 4.2 mmol/L (3.4-5.0); Sodium 145 mmol/L (137-145)
== END 2022-07-30 09:36 | disposition home or self-care (01) ==
LOC: ANHLAB 09:37
PROVIDERS: PCP Internal Medicine; Visit Provider Internal Medicine
DX: Z51.81 Encounter for therapeutic drug level monitoring (principal); Z79.899 Other long term (current) drug therapy; I10 Essential (primary) hypertension
CPT/HCPCS: 36415; 80048

== ENCOUNTER 2022-12-12 16:07 | Emergency (ER) | payer MEDICARE, SELFPAY ==
[2022-12-12] VITALS (9 sets, daily range): BP systolic 164–193; BP diastolic 58–93; PULSE 60–71; RESP 15–21; TEMP 36.3–36.6; O2SAT 94–100
--- NOTE | ~2022-12-12 | XR_ITS ---
EXAM: XR wrist RT min 3V DATE: 12/12/2022 17:00 HISTORY: fall, LIMITED ROM . COMPARISON: 01/10/2007. FINDINGS: Decreased bone mineral density. Displaced right ulnar styloid fracture. Mildly comminuted and mildly impacted, intra-articular fracture of the distal right radius with 41 degrees posterior an gulation. Mild chronic bowing deformity of the distal radius and ulna. Scattered degenerative changes . IMPRESSION: Mildly comminuted and impacted, intra-articular fracture at the distal right radius with 41 degrees posterior angulation. Displaced right ulnar styloid fracture. Reviewed, dictated and finalized at location [facility]. IMPRESSION: Mildly comminuted and impacted, intra-articular fracture at the dis natividad right radius with 41 degrees posterior angulation. Displaced right ulnar st yloid fracture.
--- NOTE | ~2022-12-12 | XR_ITS ---
EXAMINATION: XR humerus RT DATE: 12/12/2022 17:01 INDICATION: Right humerus injury. Fall. TECHNIQUE: 2 views of right humerus were obtained. COMPARISON: Chest 2 views 12/15/2021 FINDINGS: There are likely changes of distal right clavicle resection. No fracture. There is severe g lenohumeral joint osteoarthritis. IMPRESSION: 1. Severe right glenohumeral joint osteoarthritis. Reviewed, dictated and finalized at location A.
--- NOTE | ~2022-12-12 | CT_ITS ---
EXAMINATION: CT facial bones wo con DATE: 12/12/2022 16:48 INDICATION: LEFT BLACK EYE, LAC TO CHIN, FACIAL PAIN, SWELLING/BRUISING . TECHNIQUE: Computed tomography (CT) of the facial bones and maxillofacial region was performed withou t intravenous contrast. Automated exposure control and iterative reconstruction technique were employ ed. The dose-length product was 284.47 mGy-cm. COMPARISON: None. FINDINGS: Soft Tissues: Left-sided facial swelling/contusions. Facial bones: No acute fracture. No lytic or blastic process. Hyperostosis. Eyes: The globes are intact. The soft tissue planes of the orbits are maintained. Left lens replace ment. Paranasal Sinuses: The visualized aerated spaces are clear. Foreign Bodies: No radiopaque foreign bodies. Other Findings: Periodontal disease. Degenerative changes in the cervical spine. IMPRESSION: No evidence of acute facial bone fracture. Reviewed, dictated and finalized at location K.
--- NOTE | ~2022-12-12 | XR_ITS ---
EXAM: XR wrist RT 2V DATE: 12/12/2022 20:56 HISTORY: post reduction . COMPARISON: Same date at 4:55 PM. FINDINGS/IMPRESSION: Osseous detail obscured by overlying cast material. Improved alignment of the di stal radial and ulnar styloid fractures. Minimal residual 2 mm lateral displacement of the radial fra cture. Reviewed, dictated and finalized at location [facility].
--- NOTE | ~2022-12-12 | CT_ITS ---
EXAMINATION: CT brain wo con DATE: 12/12/2022 16:44 INDICATION: fall head injury . TECHNIQUE: Computed tomography (CT) of the head was performed without intravenous contrast. The mA wa s adjusted according to patient size. Iterative reconstruction technique was employed. The dose-lengt h product was 681.00 mGy-cm. COMPARISON: None. FINDINGS: No acute intracranial hemorrhage or extra-axial fluid collection. No hydrocephalus, mass, or herniation. No acute ischemic infarct. Unremarkable dural venous sinus attenuation. No acute osseous abnormality. The aerated spaces are clear. Mild atrophy and chronic white matter change. Left lens replacement. Atherosclerotic intracranial kristal cifications. IMPRESSION: No acute intracranial process. Reviewed, dictated and finalized at location [facility].
--- NOTE | 2022-12-12 18:43 | ED.GENADULT ---
HPI - General Adult General Chief complaint: Extremity Injury, Upper Stated complaint: fall Time Seen by Provider: 12/12/22 17:37 Source: patient and RN notes reviewed Mode of arrival: ambulatory Limitations: no limitations History of Present Illness HPI narrative: This is an 82 year old female who presents for evaluation of injuries s/p fall. Patient states she tripped and fell today. She hit her head and face, and she takes aspirin with plavix. She also reported right upper arm pain and right wrist pain. She denies LOC. She denies dizziness. She denies neck pain, rib pain, hip pain or leg pain. Related Data Home Medications Medication Instructions Recorded Confirmed acetaminophen 500 mg tablet 500 mg PO BID PRN PAIN 09/22/19 08/07/22 (Tylenol Extra Strength) calcium citrate 600 mg PO BID 09/22/19 08/07/22 timolol 0.5 % eye drops 1 drp ophthalmic (eye) Q12H 08/30/20 08/07/22 Allergies Allergy/AdvReac Type Severity Reaction Status Date / Time celecoxib Allergy Severe RASH Verified 05/01/22 14:29 iodine Allergy Severe Rash Verified 05/01/22 14:29 Penicillins Allergy Severe Hives / Verified 05/01/22 14:29 Red Face povidone Allergy Severe Rash Verified 05/01/22 14:29 rofecoxib Allergy Severe Rash Verified 05/01/22 14:29 Sulfa (Sulfonamide Allergy Severe Ulcers Verified 05/01/22 14:29 Antibiotics) iohexol AdvReac Mild Rash Verified 05/01/22 14:29 [From CONTRAST - CT, XRAY] Review of Systems Review of Systems: All systems reviewed & are unremarkable except as noted in HPI and below PMFSH Past Medical History Medical History Abdominal pain Abnormality of gait due to impairment of balance Antiplatelet or antithrombotic long-term use ASHD (arteriosclerotic heart disease) Back pain Bakers cyst Benign essential hypertension BMI 37.0-37.9, adult BMI 38.0-38.9,adult BMI 39.0-39.9,adult Carotid bruit Cellulitis Colon cancer screening Coronary artery disease Costochondritis Depressed mood DJD (degenerative joint disease) of knee DM type 2 (diabetes mellitus, type 2) Encounter for other specified surgical aftercare Encounter for routine adult health examination without abnormal findings Fall Follow up Follow up GERD (gastroesophageal reflux disease) Glaucoma H/O blood clots Hemoglobin A1c less than 7.0% August 2020 A1c = 5.5 Hypercalcemia Hyperlipidemia Hypersomnolence Left shoulder pain Left-sided back pain Multiple falls On fpc drug therapy MIMA (obstructive sleep apnea) newly diagnosed; no CPAP Osteoarthritis of left shoulder Pain and swelling of left lower extremity Personal history of COVID-19 Puncture wound Spider bite UTI (urinary tract infection) Surgical History Surgical History History of bowel resection History of total bilateral knee replacement Dr. Ramos Hx of abdominal surgery S/P thyroidectomy Family History Family History Father Family history of malignant neoplasm Mother Family history of heart disease in male family member before age 55 Other Diabetes mellitus Family history of allergic disorder Hypertension Social History Social History Smoking status: Never smoker Alcohol intake: never Lack of Transportation: No Lack of Food: Never True Current Housing: I Have Housing Concerned About Future Housing: No Difficulty Paying Gas/Electric Bills: No Difficulty Paying for Meds: No Currently Unemployed: No Education: High School Diploma/GED Difficulty w/ Childcare or Family Care: No Living arrangements: alone Occupation/Education: retired Gender identity (if verbalized by the patient): Female Exam Const: General: no acute distress and alert Nutritional Appearance: well nourished Orientation/cons
[2022-12-12] MEDS: ONDANSETRON INJ 4 MG/2 ML VIAL IV PUSH (20:08)
[2022-12-12] MEDS: HYDROmorphone HCL INJ (*CRX) 1 MG/ML SYR 0.5 MG IV PUSH (20:08)
--- NOTE | 2022-12-12 21:37 | PC.NURSE ---
Dr. camara administered 60 mg of propafol at 2038.
--- NOTE | 2022-12-12 21:48 | PC.NURSE ---
Pt ambulated to bathroom with her cane. Pt tolerated ambulation well, denies dizziness. Physician notified.
== END 2022-12-12 22:12 | disposition home or self-care (01) ==
PROVIDERS: Emergency Provider General Practice; PCP Internal Medicine
DX: S52.571A Other intraarticular fracture of lower end of right radius, initial encounter for closed fracture (principal); S52.611A Displaced fracture of right ulna styloid process, initial encounter for closed fracture; S09.90XA Unspecified injury of head, initial encounter; S00.83XA Contusion of other part of head, initial encounter; I25.10 Atherosclerotic heart disease of native coronary artery without angina pectoris; I10 Essential (primary) hypertension; E11.9 Type 2 diabetes mellitus without complications; E78.5 Hyperlipidemia, unspecified; K21.9 Gastro-esophageal reflux disease without esophagitis; G47.33 Obstructive sleep apnea (adult) (pediatric); M17.9 Osteoarthritis of knee, unspecified; M19.012 Primary osteoarthritis, left shoulder; M19.011 Primary osteoarthritis, right shoulder; Z86.16 Personal history of COVID-19; Z87.440 Personal history of urinary (tract) infections; Z96.653 Presence of artificial knee joint, bilateral; Z90.49 Acquired absence of other specified parts of digestive tract; E89.0 Postprocedural hypothyroidism; Z79.82 Long term (current) use of aspirin; Z79.02 Long term (current) use of antithrombotics/antiplatelets; W01.0XXA Fall on same level from slipping, tripping and stumbling without subsequent striking against object, initial encounter
CPT/HCPCS: 25605; 70450; 70486; 73060; 73100; 73110; 96374; 96375; 99285; A4565; J1170; J2405; J7030

== ENCOUNTER 2023-01-02 08:31 | Outpatient (CLI) | payer MEDICARE, SELFPAY ==
[2023-01-02 09:05] LABS: Basophils Absolute Auto 0.1 K/mm3 (0.0-0.1); Eosinophils Absolute Auto 0.3 K/mm3 (0-0.3); Eosinophils Percent Auto 4.5 % (0-4.4); Hematocrit 40.2 % (37.0-47.0); Hemoglobin 12.8 g/dL (12.0-15.0); Immature Granulocyte Absolute 0.04 K/mm3 (0.00-0.031); Immature Granulocyte Percent A 0.6 % (0-0.5); Lymphocytes Absolute Auto 1.42 K/mm3 (0.9-3.2); Lymphocytes Percent Auto 20.5 % (18.3-44.2); Mean Corpuscular HGB Conc 31.8 g/dl (32-36); Mean Corpuscular Hemoglobin 31.1 pg (26-34); Mean Corpuscular Volume 97.8 fl (80-100); Mean Platelet Volume 11.3 fl (7.4-10.4); Monocytes Absolute Auto 0.5 K/mm3 (0.1-0.6); Monocytes Percent Auto 7.3 % (2.6-8.5); Neutrophils Absolute Auto 4.6 K/mm3 (1.3-6.7); Neutrophils Percent Auto 66.1 % (45.5-73.1); Platelet Count Result 216 k/mm3 (150-375); Red Blood Count 4.11 M/mm3 (4.2-5.4); Red Cell Distribution Width 13.5 % (11.5-14.5); White Blood Count 6.9 K/mm3 (4.5-10.0)
[2023-01-02 09:16] LABS: Alanine Aminotransferase 21 U/L (6-35); Albumin Level 4.4 g/dL (3.5-5.1); Alkaline Phosphatase 120 U/L (38-126); Anion Gap 9 mmol/L (8-16); Aspartate Amino Transferase 27 U/L (14-36); Bilirubin,Total 0.6 mg/dL (0.2-1.3); Blood Urea Nitrogen 31 mg/dL (7-17); Calcium 9.5 mg/dL (8.4-10.2); Carbon Dioxide 25 mmol/L (22-30); Chloride 107 mmol/L (98-107); Cholesterol 145 mg/dL (0-200); Estimated Glomerular Filt Rate 48; Glucose 129 mg/dL (65-110); HDL Direct 45 mg/dL; Potassium 3.9 mmol/L (3.4-5.0); Sodium 141 mmol/L (137-145); Triglycerides 116 mg/dL (<150)
[2023-01-02 09:27] LABS: LDL Cholesterol Direct 55 mg/dL
[2023-01-02 09:49] LABS: Free T4 Free Thyroxine 1.41 ng/mL (0.78-2.19)
[2023-01-02 10:03] LABS: Appearance Urine Clear (Clear); Bacteria Urine 2+ /hpf; Bilirubin Urine Negative (Negative); Blood Urine Negative (Negative); Color Urine Yellow (Yellow); Glucose Urine UA Negative (Negative); Ketones Urine Negative (Negative); Leukocyte Esterase Ur 1+ LEU/UL (Negative); Nitrate Urine Positive (Negative); Non Pathogenic Casts 0-2; Protein Urine Negative (Negative); RBC Urine 0-2 /hpf (0-2); Squamous Epithelial Cell Urine Occasional /hpf (Few); Urobilinogen Urine 0.2 mg/dL (<2.0)
[2023-01-02 10:19] LABS: Add Urine Microscopic? YES
[2023-01-02 12:17] LABS: Creatinine Urine 144.1 mg/dL
[2023-01-02 12:22] LABS: MALB Creatinine Ratio 6.9 mg/g (0-30); Microalbumin Urine Random 9.9 mg/L (0-16.7)
== END 2023-01-02 08:32 | disposition home or self-care (01) ==
LOC: ANHLAB 08:34
PROVIDERS: PCP Internal Medicine; Visit Provider Internal Medicine
DX: E11.9 Type 2 diabetes mellitus without complications (principal); Z13.29 Encounter for screening for other suspected endocrine disorder; I10 Essential (primary) hypertension; Z79.899 Other long term (current) drug therapy; E78.2 Mixed hyperlipidemia
CPT/HCPCS: 36415; 80053; 80061; 81001; 82043; 83036; 84439; 84443; 85025; 87077; 87086; 87186

== ENCOUNTER 2023-03-11 12:00 | Outpatient (RCR) | payer MEDICARE, SELFPAY ==
--- NOTE | 2023-02-06 10:31 | OTOPEVAL1 ---
Assessment and note entered by Catarino Heck, AMY/Daya, CHT Evaluation Information Assessment Status Evaluation Diagnosis Right distal radius fracture Onset 12/11/22 Subjective Information Patient is right hand dominant. She sustained a fall about 6 weeks ago and sustain a right distal radius fracture. She is starting to use the right hand to help her with dressing, writing, and hold a newspaper. She is not lifting anything with weight, just light items. Reported Pain Level Pain Score 1: Self Report Additional Pain Score Comments 1/10 pain at rest 4/10 pain with ROM HEP Assessment OT Clinical Summary Patient referred to outpatient OT s/p right distal radius fracture with a decline in right hand/UE use due to deficits with pain, stiffness, and weakness. Skilled OT indicated to facilitate optimal functional use of the right hand. Plan of Care Interventions Therapeutic Exercise,Manual Therapy,Therapeutic Activities,Hot Pack/Cold Pack,Paraffin OT Services Indicated Yes Treatment Frequency and 2x/week for 6 weeks Duration These treatments will address the objective and functional deficits as defined above. The patient will be advanced safely and appropriately in order for the patient to progress towards his/her prior level of function. Additional exercises will be introduced and as well as a comprehensive home exercise program upon discharge, if needed, ?to ensure carryover of functional gains achieved in the clinic. This treatment plan has been reviewed and agreement upon by the patient.
--- NOTE | 2023-02-06 10:31 | OPREHPOC ---
Outpatient Therapy Plan of Care This is a Multidisciplinary Plan of Care that may contain components documented by all disciplines (PT, OT, and ST.) OT Problem 1 OT Problem #1 Knowledge Deficit OT Goal 1 Goal 1. Patient to be independent with all instructed materials. Target Visit 8 OT Problem 2 OT Problem #2 Pain OT Goal 1 Goal 1. Patient to be independent with non-medication pain management. - ROM - heat/ice - rest Target Visit 8 OT Problem 3 OT Problem #3 Impaired Range of Motion OT Goal 1 Goal Patient to increase active ROM of the right UE: 1. Wrist flexion to 55 degrees. 2. Wrist extension to 50 degrees. 3. Finger flexion to be able to touch the finger tips to the palm. Target Visit 8 OT Problem 4 OT Problem #4 Impaired Strength OT Goal 1 Goal 1. Patient to be able to complete gross wrist strengthening program with 1 lb. free weight x20 reps. 2. 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 Target Visit 8
--- NOTE | 2023-03-04 11:11 | OTOPPROGNS ---
Assessment and note entered by Catarino Heck, OTKris/Daya, CHT Evaluation Information Assessment Status Progress Diagnosis Right distal radius fracture Onset 12/11/22 Subjective Information Patient has been participating in 4 weeks of outpatient OT. She reports that she is now able to use that hand for everything - cooking, lifting , carrying, driving, turning a liao, and dressing. Reports being limited in heavy lifting. Reports no pain at rest. Reports some soreness after use. Wrist ROM has returned to normal limits. Finger ROM has returned to normal limits. 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 Assessment OT Clinical Summary Patient referred to outpatient OT s/p right distal radius fracture with a decline in right hand/UE use due to deficits with pain, stiffness, and weakness. She has made excellent progress with therapy so far. ROM has returned to normal limits. She continues to have residual weakness. Plan to see for 2 additional sessions for HEP progression then D/C. Plan of Care Interventions Therapeutic Exercise,Manual Therapy,Therapeutic Activities,Hot Pack/Cold Pack,Paraffin OT Services Indicated Yes These treatments will address the objective and functional deficits as defined above. The patient will be advanced safely and appropriately in order for the patient to progress towards his/her prior level of function. Additional exercises will be introduced and as well as a comprehensive home exercise program upon discharge, if needed, ?to ensure carryover of functional gains achieved in the clinic. This treatment plan has been reviewed and agreement upon by the patient.
--- NOTE | 2023-03-11 12:29 | OTOPDC ---
Assessment and note entered by Catarino Heck, AMY/Daya, CHT Evaluation Information Assessment Status Discharge Diagnosis Right distal radius fracture Onset 12/11/22 Subjective Information Patient presents today reporting that she is ready to wrap up with therapy. She states she is using her hand and wrist like normal and is independent with all of the exercises. Please refer to most recent progress note, dated 03/04, for more detailed update on her progress. Reported Pain Level Pain Score 0: Self Report Assessment OT Clinical Summary Patient referred to outpatient OT s/p right distal radius fracture. She has made excellent progress with therapy. She presents today requesting discharge as she feels back to normal movement and strength now. Patient is no longer having functional limitations. Discharging with patient independent with HEP. Plan of Care OT Services Indicated No
== END 2023-03-13 09:44 | disposition home or self-care (01) ==
LOC: ANHOT 12:00
PROVIDERS: PCP Internal Medicine; Visit Provider Orthopaedic Surgery
DX: S52.501D Unspecified fracture of the lower end of right radius, subsequent encounter for closed fracture with routine healing (principal)
CPT/HCPCS: 97018; 97110; 97165

== ENCOUNTER 2023-05-23 09:10 | Outpatient (CLI) | payer MEDICARE, SELFPAY ==
[2023-05-23 10:10] LABS: Appearance Urine Cloudy (Clear); Bacteria Urine 4+ /hpf; Bilirubin Urine Negative (Negative); Blood Urine Negative (Negative); Color Urine Yellow (Yellow); Glucose Urine UA Negative (Negative); Ketones Urine Negative (Negative); Leukocyte Esterase Ur 2+ LEU/UL (Negative); Nitrate Urine Positive (Negative); Protein Urine Negative (Negative); RBC Urine 0-2 /hpf (0-2); Specific Grav Ur 1.018 (1.001-1.035); Squamous Epithelial Cell Urine Occasional /hpf (Few); Urobilinogen Urine 0.2 mg/dL (<2.0); WBC Urine 51-100 /hpf; pH Urine 5.5 (5.0-9.0)
[2023-05-23 10:18] LABS: Alanine Aminotransferase 23 U/L (6-35); Albumin Level 4.3 g/dL (3.5-5.1); Alkaline Phosphatase 73 U/L (38-126); Anion Gap 8 mmol/L (8-16); Aspartate Amino Transferase 31 U/L (14-36); Bilirubin,Total 0.7 mg/dL (0.2-1.3); Blood Urea Nitrogen 26 mg/dL (7-17); Calcium 9.2 mg/dL (8.4-10.2); Carbon Dioxide 25 mmol/L (22-30); Chloride 110 mmol/L (98-107); Cholesterol 141 mg/dL (0-200); Estimated Glomerular Filt Rate 60; Glucose 98 mg/dL (65-110); HDL Direct 50 mg/dL; Potassium 4.1 mmol/L (3.4-5.0); Sodium 143 mmol/L (137-145); Triglycerides 82 mg/dL (<150)
[2023-05-23 10:19] LABS: Hemoglobin A1C 5.7 % (<5.7)
[2023-05-23 10:29] LABS: LDL Cholesterol Direct 59 mg/dL
[2023-05-23 10:31] LABS: Add Urine Microscopic? YES
== END 2023-05-23 09:11 | disposition home or self-care (01) ==
LOC: ANHLAB 09:12
PROVIDERS: PCP Internal Medicine; Visit Provider Internal Medicine
DX: I10 Essential (primary) hypertension (principal); E78.5 Hyperlipidemia, unspecified; E11.9 Type 2 diabetes mellitus without complications; Z79.899 Other long term (current) drug therapy
CPT/HCPCS: 36415; 80053; 80061; 81001; 83036; 87077; 87086; 87088; 87186

== ENCOUNTER 2023-06-26 11:39 | Outpatient (CLI) | payer MEDICARE, SELFPAY ==
[2023-06-26 12:10] LABS: Appearance Urine Clear (Clear); Bacteria Urine None Seen /hpf; Bilirubin Urine Negative (Negative); Blood Urine Negative (Negative); Color Urine Yellow (Yellow); Glucose Urine UA Negative (Negative); Ketones Urine Negative (Negative); Leukocyte Esterase Ur Trace LEU/UL (Negative); Nitrate Urine Negative (Negative); Non Pathogenic Casts 0-2; Protein Urine Negative (Negative); RBC Urine 0-2 /hpf (0-2); Specific Grav Ur 1.021 (1.001-1.035); Squamous Epithelial Cell Urine None seen /hpf (Few); Urobilinogen Urine 0.2 mg/dL (<2.0); WBC Urine 0-5 /hpf; pH Urine 5.5 (5.0-9.0)
[2023-06-26 12:11] LABS: Add Urine Microscopic? YES
== END 2023-06-26 11:40 | disposition home or self-care (01) ==
PROVIDERS: PCP Internal Medicine; Visit Provider Internal Medicine
DX: N39.0 Urinary tract infection, site not specified (principal)
CPT/HCPCS: 81001

== ENCOUNTER 2023-10-07 08:44 | Outpatient (CLI) | payer MEDICARE, SELFPAY ==
[2023-10-07 09:22] LABS: Appearance Urine Clear (Clear); Bacteria Urine None Seen /hpf; Bilirubin Urine Negative (Negative); Blood Urine Negative (Negative); Color Urine Yellow (Yellow); Glucose Urine UA Negative (Negative); Ketones Urine Negative (Negative); Leukocyte Esterase Ur 1+ LEU/UL (Negative); Nitrate Urine Negative (Negative); Non Pathogenic Casts 0-2; Protein Urine Negative (Negative); RBC Urine 0-2 /hpf (0-2); Specific Grav Ur 1.019 (1.001-1.035); Squamous Epithelial Cell Urine None seen /hpf (Few); Urobilinogen Urine 0.2 mg/dL (<2.0); pH Urine 5.5 (5.0-9.0)
[2023-10-07 09:27] LABS: Alanine Aminotransferase 18 U/L (6-35); Albumin Level 4.3 g/dL (3.5-5.1); Alkaline Phosphatase 86 U/L (38-126); Anion Gap 7 mmol/L (8-16); Aspartate Amino Transferase 26 U/L (14-36); Bilirubin,Total 0.7 mg/dL (0.2-1.3); Blood Urea Nitrogen 35 mg/dL (7-17); Calcium 9.7 mg/dL (8.4-10.2); Carbon Dioxide 27 mmol/L (22-30); Chloride 108 mmol/L (98-107); Cholesterol 153 mg/dL (0-200); Estimated Glomerular Filt Rate 60; Glucose 118 mg/dL (65-110); HDL Direct 53 mg/dL; Potassium 3.6 mmol/L (3.4-5.0); Sodium 142 mmol/L (137-145); Triglycerides 130 mg/dL (<150)
[2023-10-07 09:36] LABS: Hemoglobin A1C 6.1 % (<5.7)
[2023-10-07 09:38] LABS: LDL Cholesterol Direct 60 mg/dL
[2023-10-07 09:55] LABS: Add Urine Microscopic? YES
[2023-10-07 09:57] LABS: Free T4 Free Thyroxine 1.21 ng/mL (0.78-2.19)
== END 2023-10-07 08:45 | disposition home or self-care (01) ==
LOC: ANHLAB 08:46
PROVIDERS: PCP Internal Medicine; Visit Provider Internal Medicine
DX: E11.9 Type 2 diabetes mellitus without complications (principal); I10 Essential (primary) hypertension; Z79.899 Other long term (current) drug therapy; E78.5 Hyperlipidemia, unspecified; Z13.29 Encounter for screening for other suspected endocrine disorder
CPT/HCPCS: 36415; 80053; 80061; 81001; 83036; 84439; 84443; 87086

== ENCOUNTER 2023-10-10 12:17 | Outpatient (CLI) | payer MEDICARE, SELFPAY ==
--- NOTE | ~2023-10-10 | XR_ITS ---
EXAMINATION: XR ribs RT 2V w CXR 2V INDICATION: Right-sided chest pain TECHNIQUE: PA and lateral views of the chest and four views of the right ribs were obtained. COMPARISON: 12/15/2021 FINDINGS: The lungs are free of acute opacities. No pleural effusion or pneumothorax. Calcified pulmo nary nodules are consistent with old granulomatous disease. The cardiomediastinal silhouette is kishan l. There are bridging osteophytes at multiple levels in the spine, consistent with diffuse idiopathic skeletal hyperostosis (DISH). There appears to be a nondisplaced anterolateral fracture of the right ninth rib. There also appears to be a lateral fracture of the right fourth rib. There is advanced os teoarthritis of the shoulders. IMPRESSION: 1. Apparent fractures of the right fourth and ninth ribs. 2. No acute cardiopulmonary abnormality. Reviewed, dictated and finalized at location L. 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
--- NOTE | ~2023-10-10 | XR_ITS ---
EXAMINATION: XR abdomen/kub 1V INDICATION: Unspecified abdominal pain TECHNIQUE: Supine views of the abdomen were obtained on 2 radiographs. COMPARISON: 03/19/2018 FINDINGS: The bowel gas pattern is normal. There are no dilated loops of bowel. There are phleboliths of the right pelvis. No urolithiasis is identified. There is moderate osteoarthritis of the hips. Th ere is severe lumbar spondylosis. IMPRESSION: 1. No radiographic correlate for the patient's symptoms. Reviewed, dictated and finalized at location L. H GRINDER
== END 2023-10-10 12:18 | disposition home or self-care (01) ==
LOC: ANHIMG 12:19
PROVIDERS: PCP Internal Medicine; Visit Provider Internal Medicine
DX: S22.41XA Multiple fractures of ribs, right side, initial encounter for closed fracture (principal); X58.XXXA Exposure to other specified factors, initial encounter
CPT/HCPCS: 71046; 71100; 74018

== ENCOUNTER 2024-02-14 07:27 | Outpatient (CLI) | payer MEDICARE, SELFPAY ==
[2024-02-14 08:03] LABS: Basophils Absolute Auto 0.1 K/mm3 (0.0-0.1); Basophils Percent Auto 1.4 % (0.2-1.2); Eosinophils Absolute Auto 0.5 K/mm3 (0-0.3); Eosinophils Percent Auto 7.4 % (0-4.4); Hematocrit 36.8 % (37.0-47.0); Hemoglobin 11.8 g/dL (12.0-15.0); Immature Granulocyte Absolute 0.04 K/mm3 (0.00-0.031); Immature Granulocyte Percent A 0.6 % (0-0.5); Lymphocytes Absolute Auto 1.62 K/mm3 (0.9-3.2); Lymphocytes Percent Auto 24.9 % (18.3-44.2); Mean Corpuscular HGB Conc 32.1 g/dl (32-36); Mean Corpuscular Hemoglobin 31.4 pg (26-34); Mean Corpuscular Volume 97.9 fl (80-100); Mean Platelet Volume 10.7 fl (7.4-10.4); Monocytes Absolute Auto 0.6 K/mm3 (0.1-0.6); Monocytes Percent Auto 8.8 % (2.6-8.5); Neutrophils Absolute Auto 3.7 K/mm3 (1.3-6.7); Neutrophils Percent Auto 56.9 % (45.5-73.1); Platelet Count Result 165 k/mm3 (150-375); Red Blood Count 3.76 M/mm3 (4.2-5.4); Red Cell Distribution Width 13.2 % (11.5-14.5); White Blood Count 6.5 K/mm3 (4.5-10.0)
[2024-02-14 08:30] LABS: Alanine Aminotransferase 15 U/L (6-35); Albumin Level 4.1 g/dL (3.5-5.1); Alkaline Phosphatase 71 U/L (38-126); Anion Gap 11 mmol/L (4-12); Aspartate Amino Transferase 23 U/L (14-36); Bilirubin,Total 0.6 mg/dL (0.2-1.3); Blood Urea Nitrogen 45 mg/dL (7-17); Carbon Dioxide 23 mmol/L (22-30); Chloride 109 mmol/L (98-107); Cholesterol 118 mg/dL (0-200); Estimated Glomerular Filt Rate 36; Glucose 119 mg/dL (65-110); HDL Direct 47 mg/dL; Potassium 4.1 mmol/L (3.4-5.0); Sodium 143 mmol/L (137-145); Triglycerides 67 mg/dL (<150)
[2024-02-14 08:40] LABS: LDL Cholesterol Direct 56 mg/dL
[2024-02-14 08:41] LABS: Hemoglobin A1C 6.2 % (<5.7)
[2024-02-14 09:00] LABS: Thyroid Stimulating Hormone 0.417 uIU/mL (0.465-4.680)
[2024-02-14 09:02] LABS: Appearance Urine Cloudy (Clear); Bacteria Urine 4+ /hpf; Bilirubin Urine Negative (Negative); Blood Urine Negative (Negative); Color Urine Yellow (Yellow); Glucose Urine UA Negative (Negative); Ketones Urine Negative (Negative); Leukocyte Esterase Ur 2+ LEU/UL (Negative); Need Manual Microscopic Reviewed; Nitrate Urine Positive (Negative); Protein Urine Negative (Negative); RBC Urine 0-2 /hpf (0-2); Specific Grav Ur 1.018 (1.001-1.035); Squamous Epithelial Cell Urine None Seen /hpf (Few); Urobilinogen Urine 0.2 mg/dL (<2.0); WBC Clumps Urine Present /HPF; WBC Urine >100 /hpf (0-3); pH Urine 5.5 (5.0-9.0)
[2024-02-14 09:07] LABS: Free T4 Free Thyroxine 1.19 ng/mL (0.78-2.19)
[2024-02-14 10:06] LABS: Add Urine Microscopic? YES
== END 2024-02-14 07:28 | disposition home or self-care (01) ==
LOC: ANHLAB 07:27
PROVIDERS: PCP Internal Medicine; Visit Provider Internal Medicine
DX: E11.9 Type 2 diabetes mellitus without complications (principal); E78.5 Hyperlipidemia, unspecified; Z79.899 Other long term (current) drug therapy; Z13.29 Encounter for screening for other suspected endocrine disorder; N39.0 Urinary tract infection, site not specified; I10 Essential (primary) hypertension
CPT/HCPCS: 36415; 80053; 80061; 81001; 83036; 84439; 84443; 85025; 87077; 87086; 87088; 87186

== ENCOUNTER 2024-06-24 08:23 | Outpatient (CLI) | payer MEDICARE, SELFPAY ==
[2024-06-24 09:00] LABS: Add Urine Microscopic? YES; Appearance Urine Clear (Clear); Bacteria Urine 4+ /hpf; Bilirubin Urine Negative (Negative); Blood Urine Negative (Negative); Color Urine Yellow (Yellow); Glucose Urine UA Negative (Negative); Ketones Urine Negative (Negative); Leukocyte Esterase Ur 2+ LEU/UL (Negative); Nitrate Urine Positive (Negative); Non Pathogenic Casts 0-2; Protein Urine Negative (Negative); RBC Urine 0-2 /hpf (0-2); Specific Grav Ur 1.017 (1.001-1.035); Squamous Epithelial Cell Urine None Seen /hpf (Few); Urobilinogen Urine 0.2 mg/dL (<2.0); WBC Urine 51-100 /hpf (0-3); pH Urine 5.5 (5.0-9.0)
[2024-06-24 09:05] LABS: Alanine Aminotransferase 18 U/L (6-35); Albumin Level 4.2 g/dL (3.5-5.1); Alkaline Phosphatase 76 U/L (38-126); Anion Gap 11 mmol/L (4-12); Aspartate Amino Transferase 25 U/L (14-36); Bilirubin,Total 0.6 mg/dL (0.2-1.3); Blood Urea Nitrogen 34 mg/dL (7-17); Calcium 9.5 mg/dL (8.4-10.2); Carbon Dioxide 25 mmol/L (22-30); Chloride 107 mmol/L (98-107); Cholesterol 133 mg/dL (0-200); Estimated Glomerular Filt Rate 53; Glucose 112 mg/dL (65-110); HDL Direct 47 mg/dL; Potassium 3.5 mmol/L (3.4-5.0); Sodium 143 mmol/L (137-145); Triglycerides 101 mg/dL (<150)
[2024-06-24 09:08] LABS: Hemoglobin A1C 6.4 % (<5.7)
[2024-06-24 09:16] LABS: LDL Cholesterol Direct 47 mg/dL
[2024-06-24 10:14] LABS: Creatinine Urine 99.8 mg/dL
[2024-06-24 10:17] LABS: MALB Creatinine Ratio 6.1 mg/g (0-30); Microalbumin Urine Random 6.1 mg/L (0-16.7)
[2024-06-24 10:30] LABS: Free T4 Free Thyroxine 1.25 ng/mL (0.78-2.19)
== END 2024-06-24 08:24 | disposition home or self-care (01) ==
PROVIDERS: PCP Internal Medicine; Visit Provider Internal Medicine
DX: E78.5 Hyperlipidemia, unspecified (principal); I10 Essential (primary) hypertension; E11.9 Type 2 diabetes mellitus without complications; Z13.29 Encounter for screening for other suspected endocrine disorder; Z79.899 Other long term (current) drug therapy
CPT/HCPCS: 36415; 80053; 80061; 81001; 82043; 83036; 84439; 84443; 87077; 87086; 87186

== ENCOUNTER 2024-07-14 11:07 | Emergency (ER) | payer MEDICARE, SELFPAY ==
--- NOTE | ~2024-07-14 | XR_ITS ---
EXAMINATION: XR scapula LT DATE: 07/14/2024 12:40 INDICATION: Left scapula injury. Pain. TECHNIQUE: 2 views of left scapula on 3 radiographs were obtained. COMPARISON: Left shoulder radiographs 03/13/2021 FINDINGS: Alignment is normal. No fracture. There is severe osteoarthritis of glenohumeral joint and acromioclavicular joint. Calcified left lung nodules are consistent with old granulomatous disease. IMPRESSION: 1. Polyarticular osteoarthritis. Reviewed, dictated and finalized at location A. DESIGNER
--- NOTE | ~2024-07-14 | CT_ITS ---
EXAMINATION: CT brain wo con DATE: 07/14/2024 12:13 INDICATION: Head injury. Fall. TECHNIQUE: Computed tomography (CT) of the head was performed without intravenous contrast. The mA wa s adjusted according to patient size. Iterative reconstruction technique was employed. The dose-lengt h product was 681.00 mGy-cm. COMPARISON: Head CT 12/12/2022 FINDINGS: There is no intracranial hemorrhage, acute infarction, or abnormal intracranial mass lesion . There are scattered areas of low attenuation in the cerebral white matter, which is within normal l imits for the patient's age. The ventricles are normal in size. There are likely changes of left ocul ar lens replacement surgery. There is mild mucosal thickening in the paranasal sinuses. The mastoid a ir cells are normal. There is a left-sided scalp hematoma. IMPRESSION: 1. Normal aging brain. Reviewed, dictated and finalized at location A. GER RELIABILITY IMPRESSION: 1. Normal aging brain.
--- NOTE | ~2024-07-14 | CT_ITS ---
EXAMINATION: CT cervical spine wo con DATE: 07/14/2024 12:13 INDICATION: Head injury. TECHNIQUE: Computed tomography (CT) of the cervical spine was performed without intravenous contrast. Automated exposure control and iterative reconstruction technique were employed. The dose-length pro duct was 435.58 mGy-cm. COMPARISON: Chest CT 01/13/2015 FINDINGS: There is a 2.5 cm nodule in left thyroid lobe, stable from 01/13/2015, likely benign. Calcif ied left lung nodules are consistent with old granulomatous disease. There is 2 mm retrolisthesis of C5 on C6 and 2 mm anterolisthesis of C6 on C7 and C7 on T1. Vertebral body heights are normal. There is mildly decreased disc height at C4-C5 and severely decreased disc height at C5-C6. The following d isc levels are specifically discussed: C2-C3: There is no uncovertebral joint osteoarthritis. There is severe bilateral facet joint osteoart hritis. There is mild left neural foraminal stenosis. There is mild central canal stenosis. C3-C4: There is mild right and severe left uncovertebral joint osteoarthritis. There is moderate righ t and severe left facet joint osteoarthritis. There is mild left neural foraminal stenosis. There is mild central canal stenosis. C4-C5: There is moderate bilateral uncovertebral joint osteoarthritis. There is severe bilateral face t joint osteoarthritis. There is mild bilateral neural foraminal stenosis. There is mild central malini l stenosis. C5-C6: There is severe bilateral uncovertebral joint osteoarthritis. There is severe bilateral facet joint osteoarthritis. There is moderate right and mild left neural foraminal stenosis. There is mild central canal stenosis. C6-C7: There is mild bilateral uncovertebral joint osteoarthritis. There is severe bilateral facet abbie int osteoarthritis. There is mild bilateral neural foraminal stenosis. There is mild central canal st enosis. C7-T1: There is no uncovertebral joint osteoarthritis. There is severe bilateral facet joint osteoart hritis. There is mild bilateral neural foraminal stenosis. There is no central canal stenosis. IMPRESSION: 1. No fracture. 2. Severe cervical spondylosis. Reviewed, dictated and finalized at location A. OPERATOR
[2024-07-14 11:14] VITALS: BP 143/109; PULSE 55; RESP 15; TEMP 36.6; O2SAT 100
[2024-07-14 11:54] VITALS: BP 140/70; PULSE 49; RESP 16; O2SAT 99
--- NOTE | 2024-07-14 12:00 | PC.NURSE ---
Pt HR <50. Denies history of bradycardia. EKG order placed.
--- NOTE | 2024-07-14 12:01 | ECG_ITS ---
Test Date: 2024-07-14 12:23:21 Measurements Intervals [place] Rate: 51 P: 52 MS: 184 QRS: 58 QRSD: 148 T: 46 QT: 463 QTc: 427 Interpretive Statements SINUS BRADYCARDIA RIGHT BUNDLE BRANCH BLOCK BASELINE ARTIFACT- I, II, III, AVR, AVL, AVF, V2 ABNORMAL ECG No previous ECG available for comparison Electronically Signed On 07-14-2024 14:18:20 MARKETING PROJECT COORDINATOR by Nazario Palma D.O.
[2024-07-14] MEDS: ACETAMINOPHEN 325 MG TABLET 650 MG PO (14:00)
[2024-07-14 14:01] VITALS: BP 185/58; PULSE 54; RESP 16; O2SAT 100
--- NOTE | 2024-07-14 14:27 | ED.FALL ---
HPI - Fall General Chief Complaint: Fall Stated Complaint: fall hit head Time Seen by Provider: 07/14/24 11:59 History of Present Illness HPI Narrative: Patient is an 83-year-old female who presents ER after a fall. Tripped and fell on the lip of a curb. Struck the left side of her head. No LOC. Takes Plavix. Also has pain over the left scapula. Mild discomfort elbow but normal range of motion. Related Data Home Medications Medication Instructions Recorded Confirmed calcium citrate 600 mg PO BID 09/22/19 06/29/24 timolol 0.5 % eye drops 1 drp ophthalmic (eye) Q12H 08/30/20 06/29/24 ibuprofen 200 mg capsule 200 mg PO Q6H PRN 12/19/22 06/29/24 acetaminophen 500 mg oral powder 500 mg PO Q6H PRN 01/29/23 06/29/24 packet (Tylenol Extra Strength) biotin 10,000 mcg chewable tablet mcg PO 02/20/24 06/29/24 (Hair, Skin and Nails (biotin)) cranberry 500 mg capsule 500 mg PO BID 02/20/24 06/29/24 Allergies Allergy/AdvReac Type Severity Reaction Status Date / Time celecoxib Allergy Severe RASH Verified 07/14/24 11:55 iodine Allergy Severe Rash Verified 07/14/24 11:55 Penicillins Allergy Severe Hives / Verified 07/14/24 11:55 Red Face povidone Allergy Severe Rash Verified 07/14/24 11:55 rofecoxib Allergy Severe Rash Verified 07/14/24 11:55 Sulfa (Sulfonamide Allergy Severe Ulcers Verified 07/14/24 11:55 Antibiotics) hydrocodone [From Vicodin] Allergy Intermediate becomes Verified 07/14/24 11:55 combative iohexol AdvReac Mild Rash Verified 07/14/24 11:55 [From CONTRAST - CT, XRAY] Review of Systems Review of Systems: All systems reviewed & are unremarkable except as noted in HPI and below Constitutional: Constitutional: Reports no additional constitutional complaints ENT: Reports system reviewed and no additional complaints, except as documented Cardiovascular: Cardiovascular: Reports no additional cardiovascular complaints Respiratory: Respiratory: Reports no additional respiratory complaints Neurologic: Reports system reviewed and no additional complaints, except as documented [facility] Past Medical History Medical History (Updated 07/14/24 @ 14:30 by Enrique Marrufo MD) Abdominal pain Abnormality of gait due to impairment of balance Antiplatelet or antithrombotic long-term use ASHD (arteriosclerotic heart disease) Back pain Bakers cyst Benign essential hypertension BMI 34.0-34.9,adult BMI 35.0-35.9,adult BMI 36.0-36.9,adult BMI 37.0-37.9, adult BMI 38.0-38.9,adult BMI 39.0-39.9,adult Carotid bruit Cellulitis Colon cancer screening Coronary artery disease Costochondritis Depressed mood Distal radius fracture, right December 2022 DJD (degenerative joint disease) of knee DM type 2 (diabetes mellitus, type 2) Encounter for Medicare annual wellness exam Encounter for other specified surgical aftercare Encounter for routine adult health examination with abnormal findings Encounter for routine adult health examination without abnormal findings Fall Follow up Follow up GERD (gastroesophageal reflux disease) Glaucoma H/O blood clots Hemoglobin A1c less than 7.0% August 2020 A1c = 5.5 Hypercalcemia Hyperlipidemia Hypersomnolence Left shoulder pain Left-sided back pain Multiple falls On joint terminal attack controller drug therapy MIMA (obstructive sleep apnea) newly diagnosed; no CPAP Osteoarthritis of left shoulder Pain and swelling of left lower extremity Personal history of COVID-19 Puncture wound Right flank pain Spider bite UTI (urinary tract infection) Surgical History Surgical History History of bowel resection History of total bilateral knee replacement Dr. Ramos Hx of abdominal surgery S/P thyroidectomy Family History Family History Father Family history of malignant neoplasm Mother Family history of heart disease in male family member before age 55 Other Diabetes mellitus Family history of allergic disorder Hypertension Social History Social History Smoking status: Never smoker Alcohol intake: never Lack of Transportation: No Lack of Food: Never True Current Housing: I Have Housing Concerned About Future Housing: No Difficulty Paying Gas/Electric Bills: No Difficulty Paying for Meds: No Currently Unemployed: No Education: High School Diploma/GED Difficulty w/ Childcare or Family Care: No Living arrangements: alone Occupation/Education: retired Gender identity (if verbalized by the patient): Female Exam Narrative: GENERAL: Well-appearing, well-nourished, and in no acute distress. HEAD: Normocephalic, Hematoma left scalp. ENT: Mucous membranes moist. Neck: no midline tenderness the neck with normal range of motion. CHEST: Clear to auscultation. No respiratory distress. HEART: Regular rate and rhythm. Normal peripheral pulses. Back: No midline tenderness of the T/L-spine. Mild tenderness over left scapula without deformity. EXTREMITIES: Normal range of motion. No edema. SKIN: Warm, dry, no rash. NEURO: Alert and oriented x3. PSYCH: Normal mood and affect. Course Course Emergency Course: Patient given reassurance. Discussed imaging results. Discharge home. No acute bony injury Vital Signs Vital signs: Vital Signs Temperature 97.9 F 07/14/24 11:14 Pulse Rate 55 L 07/14/24 11:14 Respiratory Rate 15 07/14/24 11:14 Blood Pressure 143/109 H 07/14/24 11:14 Pulse Oximetry 100 07/14/24 11:14 Oxygen Delivery Room Air 07/14/24 11:14 Temperature 97.9 F 07/14/24 11:14 Pulse Rate 54 L 07/14/24 14:01 Respiratory Rate 16 07/14/24 14:01 Blood Pressure 185/58 H 07/14/24 14:01 Pulse Oximetry 100 07/14/24 14:01 Oxygen Delivery Room Air 07/14/24 11:14 MDM - Fall Imaging Data Radiologist's impression: ITS Impressions Head CT 07/14/24 12:18 IMPRESSION: 1. Normal aging brain. Cervical Spine CT 07/14/24 12:19 IMPRESSION: 1. No fracture. 2. Severe cervical spondylosis. Scapula X-Ray 07/14/24 12:41 IMPRESSION: 1. Polyarticular osteoarthritis. Discharge Plan Discharge Clinical Impression: Hematoma of left parietal scalp Patient Disposition: Home, Self-Care Condition: Stable Instructions: Hematoma (ED) Additional Instructions: you may ice the swollen area of your head. Take Tylenol or ibuprofen for pain. Return the ER if you have additional concerns. Prescriptions: No Action Hair, Skin and Nails (biotin) 10,000 mcg tablet,chewable PO cranberry 500 mg capsule 500 mg PO BID Rx Instructions: administer with meals carvedilol 25 mg tablet See Rx Instructions .ROUTE DAILY Qty: 30 5RF Dose Instruction: TAKE 1 TABLET BY MOUTH EVERY 12 HOURS WITH FOOD Rx Instructions: TAKE 1/2 TABLET BY MOUTH TWICE DAILY WITH FOOD. omega-3 fatty acids [Fish Oil Concentrate] 1,000 mg capsule 2,000 mg PO BID Qty: 90 0RF timolol 0.5 % drops 1 drp ophthalmic (eye) Q12H Hold Instructions: until shes sees Opthal ibuprofen 200 mg capsule 200 mg PO Q6H PRN Tylenol Extra Strength 500 mg powder in packet 500 mg PO Q6H PRN calcium citrate 250 mg calcium tablet 600 mg PO BID aspirin [Adult Low Dose Aspirin] 81 mg tablet,delayed release (DR/EC) 81 mg PO DAILY Qty: 90 0RF Glucosamine Chondroitin PLUS 282-806-80-54 mg capsule 1 cap PO DAILY Qty: 90 0RF clopidogrel [Plavix] 75 mg tablet 75 mg PO DAILY Qty: 90 0RF vitamin E 200 unit capsule 400 unit PO DAILY Qty: 90 0RF (DME) blood-glucose meter [Accu-Chek Guide Me Glucose Mtr] Misc See Rx Instructions .Route Qty: 1 0RF Rx Instructions: As directed (DME) lancets 25 gauge misc See Rx Instructions .Route Qty: 100 1RF Rx Instructions: USE 1 LANCET TO CHECK GLUCOSE ONCE DAILY DX: E11.9 pioglitazone 30 mg tablet See Rx Instructions .ROUTE .COMPLEX Qty: 90 1RF Dose Instruction: Take 1 tablet by mouth once daily Rx Instructions: Take 1 tablet by mouth once daily pantoprazole 40 mg tablet,delayed release (DR/EC) See Rx Instructions .ROUTE .COMPLEX Qty: 90 1RF Dose Instruction: TAKE 1 TABLET BY MOUTH ONCE DAILY IN THE MORNING Rx Instructions: TAKE 1 TABLET BY MOUTH ONCE DAILY IN THE MORNING furosemide 40 mg tablet See Rx Instructions .ROUTE DIRECTED Qty: 90 1RF Dose Instruction: TAKE 1 TABLET BY MOUTH ONCE DAILY IN THE MORNING Rx Instructions: Take 40mg every day tramadol 50 mg tablet 50 mg PO Q6H PRN (Reason: pain) Qty: 40 0RF atorvastatin 80 mg tablet See Rx Instructions .ROUTE .COMPLEX Qty: 90 0RF Dose Instruction: Take 1 tablet by mouth once daily Rx Instructions: Take 1 tablet by mouth once daily (DME) Accu-Chek Guide test strips Strip See Rx Instructions .Route Qty: 50 2RF Rx Instructions: USE ONE STRIP TO CHECK GLUCOSE ONCE DAILY DX: E11.9 sertraline 50 mg tablet See Rx Instructions .ROUTE .COMPLEX Qty: 90 0RF Dose Instruction: Take 1 tablet by mouth once daily Rx Instructions: Take 1 tablet by mouth once daily losartan 100 mg tablet See Rx Instructions .ROUTE .COMPLEX Qty: 30 0RF Dose Instruction: Take 1 tablet by mouth once daily Rx Instructions: Take 1 tablet by mouth once daily potassium chloride 10 mEq tablet extended release See Rx Instructions .ROUTE .COMPLEX Qty: 90 0RF Dose Instruction: Take 1 tablet by mouth once daily with food Rx Instructions: Take 1 tablet by mouth once daily with food Follow-up/Referrals: Brian Perkins MD [Primary Care Provider] - 1 Week
== END 2024-07-14 15:00 | disposition home or self-care (01) ==
PROVIDERS: Emergency Provider Emergency Medicine; PCP Internal Medicine
DX: S00.03XA Contusion of scalp, initial encounter (principal); W01.0XXA Fall on same level from slipping, tripping and stumbling without subsequent striking against object, initial encounter; Z79.02 Long term (current) use of antithrombotics/antiplatelets; I10 Essential (primary) hypertension; I25.10 Atherosclerotic heart disease of native coronary artery without angina pectoris; E11.9 Type 2 diabetes mellitus without complications; K21.9 Gastro-esophageal reflux disease without esophagitis; E78.5 Hyperlipidemia, unspecified; G47.33 Obstructive sleep apnea (adult) (pediatric)
CPT/HCPCS: 70450; 72125; 73010; 93005; 99284; A9270

== ENCOUNTER 2024-11-06 08:53 | Outpatient (CLI) | payer MEDICARE, SELFPAY ==
--- OUTSIDE RECORDS SUMMARY | 2024-11-06 09:20 | XMS_ITS | Clinical Summary ---
Author Organization [facility] [address] Address [address] [place] [address] Care Team Providers Care Candy Vendor Name Role Phone Brian Perkins MD Primary Care Provider [phone] Allergies Active Allergy Reactions Criticality Noted Date Comments Celecoxib Hives Medium 03/25/2018 Contains iodine. Iodine And Iodide Containing Products Hives Medium Penicillins Rash Medium Sulfa (Sulfonamide Antibiotics) Other (See comments) Low Sores in mouth Medications aspirin 81 mg tablet take 1 Tablet (81MG) by oral route every day [address] (PROTONIX) 40 mg EC tablet take 1 tablet (40MG) by oral route every day 0 3 Active multivitamin-mi nerals-lutein (CENTRUM SILVER) tablet take 1 tablet by oral route every day 0 3 Active Additional Information Patient not taking.Reported on 04/07/2024 sertraline (ZOLOFT) 50 mg tablet take 1 tablet by oral route every day 0 0 6 Active potassium chloride ER (KLOR-CON,K-DUR ) 10 mEq CR tablet Take 1 tablet/capsule (10 mEq total) by mouth every other day Active vitamin E 400 unit capsule Take 1 capsule (400 Units total) by mouth daily Active calcium citrate-vitamin D3 (CITRACAL WITH D) 315-250 mg-unit per tablet Take 2 tablets by mouth daily Active hqwldckw-rgfn-x vl6-I-ljmg-bosw 750 mg-644 mg- 30 mg-1 mg tablet Take 2 tablets by mouth as directed. Active latanoprost (XALATAN) 0.005 % ophthalmic solution Administer 1 drop into both eyes nightly Active acetaminophen (TYLENOL 8 HOUR ORAL) Take 1 tablet by mouth 4 (four) times a day Active pioglitazone (ACTOS) 15 mg tabletIndicatio ns:type 2 diabetes mellitus Take 1 tablet (15 mg total) by mouth daily Active furosemide (LASIX) 40 mg tablet Take 0.5 tablets (20 mg total) by mouth daily Active atorvastatin (LIPITOR) 80 mg tablet Take 1 tablet (80 mg total) by mouth daily Active fish iok-byshf-9-vit C-vit E 2,000-650-12 mg/2.5 gram emulsion in packet Take by mouth Active polycarbophil (FIBERCON) 625 mg tablet Take 625 mg by mouth daily Active traMADoL (ULTRAM) 50 mg tablet Take 1 tablet (50 mg total) by mouth every 6 (six) hours as needed for pain Active losartan (COZAAR) 100 mg tablet Take 1 tablet (100 mg total) by mouth daily 3 Active timolol (TIMOPTIC) 0.5 % ophthalmic solution INSTILL 1 DROP INTO LEFT EYE IN THE MORNING DIRECTED 3 Active carvediloL (COREG) 25 mg tablet Take 1 tablet (25 mg total) by mouth 2 (two) times a day with meals 4 Active clopidogreL (PLAVIX) 75 mg tablet Take 1 tablet by mouth once daily 90 tablet 2 4 Active Active Problems Problem Noted Date Diagnosed Date Coronary artery disease invo [place]ving [place] coronary artery of [place] heart without angina pectoris 02/12/2017 Status post coronary artery stent placement 01/31 Surgical History Surgery Date Site/Laterality Comments CORONARY STENT PLACEMENT 06/02/2010 - 07/02/2010 3.5 x 28 mm Cypher stent to the mid right coronary artery Medical History Medical History Date Comments Hx Other Medical Diabetes Type I I Adiposity Obesity Hypertension Hypertension Family History Medical History Relation Name Comments Heart attack Brother 3 1 Myocardial Infa rction; Cause of : Myocardial Infarction Coronary artery disease Brother 4 Jeffry nary Artery Bypass Graft; Heart attack Brother 5 Myocardial Infa rction; Cause of : Myocardial Infarction Heart attack Maternal Grandfather Myocard ial Infarction; Cause of : Myocardial Infarction Heart attack Mother Myocardial Infa rction; Cause of : Myocardial Infarction Relation Name Status Comments Brother 1 Alive Brother 2 Brother 3 1 Brother 4 Brother 5 Maternal Grandfather Mother Social History Tobacco Use Types Packs/Day Years Used Date Smoking Tobacco: Never Smokeless Tobacco: Never Tobacco Cessation:Counseling Given: Not Answered Alcohol Use Standard Drinks/Week Comments No 0 (1 standard drink = 0.6 oz pur e alcohol) Comments Unknown Sex and Gender Information Value Date Recorded Sex Assigned at Not on file 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 Gender Identity Not on file Sexual Orientation Not on file Obstetrics History Last Filed Vital Signs Vital Sign Reading Time Taken Comments Blood Pressure 148/80 04/07/2024 1:04 PM CDT Pulse 60 04/07/2024 1:04 PM CDT Temperature - - Respiratory Rate 12 02/12/2017 2:46 PM CDT Oxygen Saturation 96% 04/07/2024 1:04 PM CDT Inhaled Oxygen Concentration - - Weight 100.8 kg (222 lb 4.8 oz) 04/07/2024 1:04 PM CDT Height 167.6 cm (5' 6 ) 04/07/2024 1:04 PM CDT Body Mass Index 35.88 04/07/2024 1:04 PM CDT Plan of Treatment Health Maintenance Due Date Last Done Comments Depression Screening 1942 Fall Risk Assessment 1942 Osteoporosis Screening-Bone Density Scan 1942 Hepatitis B Screening 1960 Zoster Vaccine (1 of 2) 1992 Well Visit 65+ 2007 Influenza Vaccine (#1) 2024 7, 06/03/2014, 06/01/2013, Additional history exists DTaP/Tdap/Td Vaccine (2 - Td or Tdap) 04/20/2029 04/20/2019 Pneumococcal vaccine 65+ Completed 06/15/2019, 05/2018 Insurance MEDICARE [facility] MEDICARE [facility] Care Teams Candy Vendor Relationship Specialty Start Date End Date Brian Perkins MD [address] [place] [address] PCP - General 09/23/14
--- OUTSIDE RECORDS SUMMARY | 2024-11-06 09:20 | XMS_ITS | Referral Summary ---
Author Organization [facility] [address] Address [address] [place] [address] Care Team Providers Care Web Content Specialist Name Role Phone Brian Perkins MD Primary Care Provider [phone] Allergies Active Allergy Reactions Criticality Noted Date [...] Take 2 tablets by mouth daily Active wlsnuwij-xduq-s to4-Y-leyd-bosw 750 mg-644 mg- 30 mg-1 mg tablet [...] mg total) by mouth daily Active fish emn-vdkge-6-vit C-vit E 2,000-650-12 mg/2.5 gram emulsion in [...] Diagnosed Date Coronary artery disease invo lving [place] coronary artery of [place] heart without angina pectoris 02/12/2017 Status post coronary artery stent placement 01/31 Social History Tobacco Use Types Packs/Day Years Used Date Smoking Tobacco: Never Smokeless Tobacco: Never Tobacco Cessation:Counseling Given: Not Answered Alcohol Use Standard Drinks/Week Comments No 0 (1 standard drink = 0.6 oz pur e alcohol) Comments Unknown Sex and Gender Information Value Date Recorded Sex Assigned at Not on file 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
--- OUTSIDE RECORDS SUMMARY | 2024-11-06 09:20 | XMS_ITS | Continuity of Care Document ---
Author Organization [facility] Address [address] [place] [address] [place] [address] Phone Care Team Providers Care Director Of Agriculture Name Role Phone Jade Patria Unavailable Unavailable [...] Diagnoses Date Provider Providers Copied on Encounter [facility], [address] [place] [address] [address], [place], [place], [id number], tel:[phone] [facility] No Information [address] [facility] , [address], [place], [facility], . tel:[phone] Referring Provider: Patria Houston, [facility] [address], [place], [facility]. tel:[phone] [facility], [address] [place] [address] [address], [place], [place], [address], tel:[phone] [facility] No Information [address] [facility] Tonya Hardin, [address], [place], [facility] [place], [place]. tel:[phone] Referring Provider: Patria Houston, [facility] Corporate [address], [place], [facility]. tel:[phone] Office/outpat ient Visit, [facility], [address] [place] [address] [address], [place], [place], [address], [place] tel:[phone] [facility] No Information -[address] [facility], [address], [place], [facility] [place], [place]. tel:[phone] Office/outpat ient Visit, [facility], [address] [place] [address] [address], [place], [place], [address], [place] tel:[phone] [facility] No Information Aug-0 8-[address] [facility]a Hardin, [address], [place], [facility], [place]. tel:[phone] Referring Provider: Patria Houston, [facility] [address], [place], [facility]. tel:[phone] [facility], [address], [place], [place], [address], [place] tel:[phone] [facility] No Information 1-[address] [facility] , [address], [place], [facility], . tel:[phone] Referring Provider: Patria Houston, [address], [place], [facility]. tel:[phone] Office/outpat ient Visit, [facility], [address] [place] [address] [address], [place], [place], [address], tel:[phone] [facility] No Information 1 4-[address] [facility] , [address], [place], [facility], . tel:[phone] Office/outpat ient Visit, [facility], [address], [place], [place], [address], [place] tel:[phone] [facility] No Information Aug-1 2-200 8 Kalie Garcia [address] [facility] , [address], [place], [facility], . tel:[phone] Office/outpat ient Visit, [facility], [address] [place] [address] [address], [place], [place], [address], [place] tel:[phone] [facility] No Information 1 2-[address] [facility] , [address], [place], [facility], [place]. tel:[phone] [facility], [address] [place] [address] [address], [place], [place], [address], [place] tel:[phone] [facility] No Information Apr-0 8-200 8 Kalie Garcia [address] [facility] , [address], [place], [facility], . tel:[phone] Referring Provider: Patria Houston, Junior [facility] Tonya [address]in [address], [place], [facility]. tel:[phone] [facility], [address] [place] [address] [address], [place], [place], [address], tel:[phone] [facility] No Information [address] [facility] Hardin, [address], [place], [facility], . tel:[phone] Referring Provider: Patria Houston, Junior [facility] Tonya [address]in [address], [place], [facility]. tel:[phone] Office/outpat ient Visit, [facility], [address] [place] [address] [address], [place], [place], [address], tel:[phone] [facility] No Information 7 Kalie España. [facility] Tonya Hardin, [address], [place], [address], . tel:[phone] Office/outpat ient Visit, [facility], [address] [place] [address] [address], [place], [place], [address], tel:[phone] [facility] No Information 7 Kalie España. [facility] Tony[facility] Hardin, [address], [place], [facility] [place], [place]. tel:[phone] Family History Family Member Type Diagnosis Age At Onset No Information Payers Payer name Insurance type Covered constitution party ID Authoriza tion(s) Medicare [facility] [id number] [place] Commercial CI [id number] Social History Type Description Quantity Date Captured [...]
[2024-11-06 09:44] LABS: Add Urine Microscopic? YES; Appearance Urine Clear (Clear); Bacteria Urine 4+ /hpf; Bilirubin Urine Negative (Negative); Blood Urine Negative (Negative); Color Urine Yellow (Yellow); Glucose Urine UA Negative (Negative); Ketones Urine Negative (Negative); Leukocyte Esterase Ur 2+ LEU/UL (Negative); Nitrate Urine Positive (Negative); Non Pathogenic Casts 0-2; Protein Urine Negative (Negative); RBC Urine 0-2 /hpf (0-2); Specific Grav Ur 1.019 (1.001-1.035); Squamous Epithelial Cell Urine None Seen /hpf (Few); Urobilinogen Urine 0.2 mg/dL (<2.0); WBC Urine 21-50 /hpf (0-3); pH Urine 5.5 (5.0-9.0)
[2024-11-06 09:50] LABS: Alanine Aminotransferase 21 U/L (6-35); Albumin Level 4.4 g/dL (3.5-5.1); Alkaline Phosphatase 91 U/L (38-126); Anion Gap 13 mmol/L (4-12); Aspartate Amino Transferase 26 U/L (14-36); Bilirubin,Total 0.7 mg/dL (0.2-1.3); Blood Urea Nitrogen 38 mg/dL (7-17); Calcium 9.8 mg/dL (8.4-10.2); Carbon Dioxide 22 mmol/L (22-30); Chloride 108 mmol/L (98-107); Cholesterol 142 mg/dL (0-200); Estimated Glomerular Filt Rate 51; Glucose 118 mg/dL (65-110); HDL Direct 51 mg/dL; Potassium 4.3 mmol/L (3.4-5.0); Sodium 143 mmol/L (137-145); Triglycerides 97 mg/dL (<150)
[2024-11-06 09:59] LABS: Hemoglobin A1C 6.2 % (<5.7)
[2024-11-06 10:02] LABS: LDL Cholesterol Direct 46 mg/dL
[2024-11-06 10:20] LABS: Thyroid Stimulating Hormone 0.375 uIU/mL (0.465-4.680)
[2024-11-06 10:30] LABS: Free T4 Free Thyroxine 1.21 ng/dL (0.78-2.19); Vitamin D 25 Hydroxy 36.9 ng/mL
== END 2024-11-06 08:54 | disposition home or self-care (01) ==
PROVIDERS: PCP Internal Medicine; Visit Provider Internal Medicine
DX: N39.0 Urinary tract infection, site not specified (principal); E55.9 Vitamin D deficiency, unspecified; E11.9 Type 2 diabetes mellitus without complications; E78.5 Hyperlipidemia, unspecified; I10 Essential (primary) hypertension; Z12.39 Encounter for other screening for malignant neoplasm of breast; Z79.899 Other long term (current) drug therapy
CPT/HCPCS: 36415; 80053; 80061; 81001; 82306; 83036; 84439; 84443; 87086; 87186

== ENCOUNTER 2025-03-17 07:57 | Outpatient (CLI) | payer MEDICARE, SELFPAY ==
--- OUTSIDE RECORDS SUMMARY | 2025-03-17 08:01 | XMS_ITS | Encounter Summary ---
Author Organization [facility] Healthcare Address [address] [place] [address] Care Team Providers Care Printing Pressman Name Role Phone Brian Perkins MD Primary Care Provider [phone] Encounter Details Date Type Department Care Team (Late st Contact Info) Description 03/11/2018 Orders Only [facility] Information Management [address] [place] [address] Scanning, Provider Social History Tobacco Use Types Packs/Day Years Used Date Smoking Tobacco: Never Assessed Alcohol Use Standard Drinks/Week Comments No 0 (1 standard drink = 0.6 oz pur e alcohol) Comments Unknown Sex and Gender Information Value Date Recorded Sex Assigned at Not on file 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 Gender Identity Not on file Sexual Orientation Not on file documented as of this encounter Plan of Treatment Not on file documented as of this encounter Procedures Procedure Name Priority Date/Time Associated Diagnosis Comments SCAN - LABS 03/11/2018 documented in this encounter Results * SCAN - LABS (03/11/2018) us Provider Scanning Final Result documented in this encounter Visit Diagnoses Not on filedocumented in this encounter Care Teams Printing Pressman Relationship Specialty Start Date End Date Brian Perkins MD [address] [place] [address] PCP - General 09/23/14 documented as of this encounter
--- OUTSIDE RECORDS SUMMARY | 2025-03-17 08:01 | XMS_ITS | Continuity of Care Document ---
Author Organization [facility] Address [address] [place] [address] [place] [address] Phone Care Team Providers Care Lead Loader Name Role Phone Jade Patria Unavailable Unavailable [...] Diagnoses Date Provider Providers Copied on Encounter [facility], [address] [place] [address] [address], [place], [place], [address], tel:[phone] [facility] No Information 0 Kalie España. [facility] , [address], [place], [place], [facility], . tel:[phone] Referring Provider: Patria Houston, [facility] [address], [place], [facility]. tel:[phone] [facility], [address] [place] [address] [address], [place], [place], [address], tel:[phone] [facility] No Information 0 Kalie España. [facility] Tonya Hardin, [address], [place], [facility], [place]. tel:[phone] Referring Provider: Patria Houston, [facility] [address], [place], [facility]. tel:[phone] Office/outpat ient Visit, [facility] [address] [place] [address] [address], [place], [place], [address], [place] tel:[phone] [facility] No Information -201 0 Kalie Pacheco [facility] Tonya Hardin, [address], [place], [facility], [place]. tel:[phone] Office/outpat ient Visit, [facility], [address] [place] [address] [address], [place], [place], [address], [place] tel:[phone] [facility] No Information Aug-0 8-200 9 Kalie España. [facility] Tonya [address]in, [address], [place], [facility], [place]. tel:[phone] Referring Provider: Patria Houston, [facility] [address], [place], [facility]. tel:[phone] [facility], [address], [place], [place], [address], [place] tel:[phone] [facility] No Information 1-200 9 Kalie Garcia [address] , [address], [place], [facility], . tel:[phone] Referring Provider: Patria Houston, [address] [facility] [address], [place], [facility]. tel:[phone] Office/outpat ient Visit, [facility], [address] [place] [address] [address], [place], [place], [address], tel:[phone] [facility] No Information 1 4-200 9 Kalie Garcia [address] [facility] , [address], [place], [facility], . tel:[phone] Office/outpat ient Visit, [facility], [address] [place] [address], [place], [place], [address], [place] tel:[phone] [facility] No Information Aug-1 2-200 8 Kalie Garcia [address] , [address], [place], [facility], . tel:[phone] Office/outpat ient Visit, [facility], [address] [place] [address] [address], [place], [place], [address], [place] tel:[phone] [facility] No Information 1 2-200 8 Kalie Garcia [address] , [address], [place], [facility], [place]. tel:[phone] [facility], [address] [place] [address] [address], [place], [place], [address], [place] tel:[phone] [facility] No Information Apr-0 8-200 8 Kalie Garcia [address] , [address], [place], [facility], . tel:[phone] Referring Provider: Patria Houston, [facility] [address], [place], [facility]. tel:[phone] [facility], [address] [place] [address] [address], [place], [place], [address], tel:[phone] [facility] No Information 0200 7 Kalie España. [address] [facility] Tonya Hardin, [address], [place], [facility], . tel:[phone] Referring Provider: Patria Houston, [facility] [address], [place], [facility]. tel:[phone] Office/outpat ient Visit, [facility], [address] [place] [address] [address], [place], [place], [address], tel:[phone] [facility] No Information 7 Kalie España. [facility] Tonya Hardin, [address], [place], [address], . tel:[phone] Office/outpat ient Visit, [facility], [address] [place] [address] [address], [place], [place], [address], tel:[phone] [facility] No Information 7 Kalie España. [facility] Tonya Hardin, [address], [place], [facility], [place]. tel:[phone] Family History Family Member Type Diagnosis Age At Onset No Information Payers Payer name Insurance type Covered alliance party ID Authoriza tion(s) Medicare [facility] [id number] BCBS ID Commercial CI [id number] Social History Type Description Quantity Date Captured [...]
--- OUTSIDE RECORDS SUMMARY | 2025-03-17 08:01 | XMS_ITS | Referral Summary ---
Author Organization [facility] [address] Address [address] [place] [address] Care Team Providers Care Analytical Laboratory Technician Name Role Phone Brian Perkins MD Primary Care Provider [phone] Allergies Active Allergy Reactions Criticality Noted Date Comments Celecoxib Hives Medium 03/25/2018 Contains iodine. Iodine And Iodide Containing Products Hives Medium Penicillins Rash Medium Sulfa (Sulfonamide Antibiotics) Other (See comments) Low Sores in mouth Medications aspirin 81 mg tablet take 1 Tablet (81MG) by oral route every day 0 09/15/[address] (PROTONIX) 40 mg EC tablet take 1 tablet (40MG) by oral route every day 0 09/15/19 13 Active multivitamin-m inerals-lutein (CENTRUM SILVER) tablet take 1 tablet by oral route every day 0 09/15/19 13 Active Additional Information Patient not taking.Reported on 04/07/2024 sertraline (ZOLOFT) 50 mg tablet take 1 tablet by oral route every day 0 0 01/03/20 16 Active potassium chloride ER (KLOR-CON,K-DU R) 10 mEq CR tablet Take 1 tablet/capsule (10 mEq total) by mouth every other day Active vitamin E 400 unit capsule Take 1 capsule (400 Units total) by mouth daily Active calcium citrate-vitami n D3 (CITRACAL WITH D) 315-250 mg-unit per tablet Take 2 tablets by mouth daily Active glucosam-olga- nrk2-Q-xqeg-viviana sw 750 mg-644 mg- 30 mg-1 mg tablet Take 2 tablets by mouth as directed. Active latanoprost (XALATAN) 0.005 % ophthalmic solution Administer 1 drop into both eyes nightly Active acetaminophen (TYLENOL 8 HOUR ORAL) Take 1 tablet by mouth 4 (four) times a day Active pioglitazone (ACTOS) 15 mg tabletIndicati ons:type 2 diabetes mellitus Take 1 tablet (15 mg total) by mouth daily Active furosemide (LASIX) 40 mg tablet Take 0.5 tablets (20 mg total) by mouth daily Active atorvastatin (LIPITOR) 80 mg tablet Take 1 tablet (80 mg total) by mouth daily Active fish bdl-tmfbm-3-vi t C-vit E 2,000-650-12 mg/2.5 gram emulsion in packet Take by mouth Active polycarbophil (FIBERCON) 625 mg tablet Take 625 mg by mouth daily Active traMADoL (ULTRAM) 50 mg tablet Take 1 tablet (50 mg total) by mouth every 6 (six) hours as needed for pain Active losartan (COZAAR) 100 mg tablet Take 1 tablet (100 mg total) by mouth daily 03/15/20 23 Active timolol (TIMOPTIC) 0.5 % ophthalmic solution INSTILL 1 DROP INTO LEFT EYE IN THE MORNING DIRECTED 02/26/20 23 Active carvediloL (COREG) 25 mg tablet Take 1 tablet (25 mg total) by mouth 2 (two) times a day with meals 03/25/20 24 Active clopidogreL (PLAVIX) 75 mg tablet Take 1 tablet by mouth once daily 90 tablet 02/20/20 25 Active clopidogreL (PLAVIX) 75 mg tablet Take 1 tablet by mouth once daily 90 tablet 2 05/19/20 24 025 Discontinued Active Problems Problem Noted Date Diagnosed Date Coronary artery disease invo lving mcgrath coronary artery of m[place]gr[place] heart without angina pectoris 02/12/2017 Status post [...] on file 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
--- OUTSIDE RECORDS SUMMARY | 2025-03-17 08:01 | XMS_ITS | Clinical Summary ---
Author Organization [facility] [address] Address [address] [place] [address] Care Team Providers Care Trials Manager Name Role Phone Brian Perkins MD Primary Care Provider [phone] Allergies Active Allergy Reactions Criticality Noted Date [...] 2 tablets by mouth daily Active glucosam-olga- stz3-I-ukra-viviana sw 750 mg-644 mg- 30 mg-1 mg [...] mg total) by mouth daily Active fish agh-yeikv-0-vi t C-vit E 2,000-650-12 mg/2.5 gram emulsion [...] Diagnosed Date Coronary artery disease invo lving eek coronary artery of eek heart without angina pectoris 02/12/2017 Status post [...] on file 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 Gender Identity Not on file Sexual Orientation [...] 1992 Well Visit 65+ 2007 Influenza Vaccine (Season Ended) 2025 06/02/2017, 06/03/2014, 06/01/2013, Additional history exists DTaP/Tdap/Td Vaccine (2 - Td or Tdap) 04/20/2029 04/20/2019 Pneumococcal vaccine 65+ Completed 06/15/2019, 1005/2018 Insurance [facility]ICARE [facility] Member Subscriber Plan / Payer ( fective 2007-Present) Name:Kristin Lyle Relation to Subscriber:Self Name:Kristin Lyle Payer ID:[id number] (NAIC) Type: OTHER Address: [place] [id number] Care Teams Trials Manager Relationship Specialty Start Date End Date Brian Perkins MD [address] [facility] [address] [facility] [address] [place] [address] PCP - General 09/23/14
[2025-03-17 08:30] LABS: Add Urine Microscopic? YES; Appearance Urine Cloudy (Clear); Glucose Urine UA Negative (Negative); Leukocyte Esterase Ur 3+ LEU/UL (Negative); Nitrate Urine Positive (Negative); Non Pathogenic Casts 0-2; Specific Grav Ur 1.016 (1.001-1.035)
[2025-03-17 09:13] LABS: Alanine Aminotransferase 19 U/L (6-35); Albumin Level 4.2 g/dL (3.5-5.1); Alkaline Phosphatase 77 U/L (38-126); Anion Gap 10 mmol/L (4-12); Aspartate Amino Transferase 29 U/L (14-36); Bilirubin,Total 0.6 mg/dL (0.2-1.3); Blood Urea Nitrogen 43 mg/dL (7-17); Calcium 9.6 mg/dL (8.4-10.2); Carbon Dioxide 21 mmol/L (22-30); Chloride 108 mmol/L (98-107); Cholesterol 135 mg/dL (0-200); Estimated Glomerular Filt Rate 47; Glucose 121 mg/dL (65-110); HDL Direct 42 mg/dL; Potassium 3.8 mmol/L (3.4-5.0); Sodium 139 mmol/L (137-145); Total Protein 6.8 g/dL (6.3-8.2); Triglycerides 142 mg/dL (<150)
[2025-03-17 10:24] LABS: Hemoglobin A1C 6.2 % (<5.7)
== END 2025-03-17 07:58 | disposition home or self-care (01) ==
PROVIDERS: PCP Internal Medicine; Visit Provider Internal Medicine
DX: E11.9 Type 2 diabetes mellitus without complications (principal); I10 Essential (primary) hypertension; E78.2 Mixed hyperlipidemia; Z79.899 Other long term (current) drug therapy
CPT/HCPCS: 36415; 80053; 80061; 81001; 83036; 87086

== ENCOUNTER 2025-03-22 06:57 | Outpatient (CLI) | payer MEDICARE, SELFPAY ==
--- OUTSIDE RECORDS SUMMARY | 2025-03-22 06:59 | XMS_ITS | Referral Summary ---
Author Organization [facility] [address] Address [address] [place] [address] Care Team Providers Care Nurse Epidemiologist Name Role Phone Brian Perkins MD Primary Care Provider [phone] Allergies Active Allergy Reactions Criticality Noted Date [...] Take 2 tablets by mouth daily Active uuqfwgbu-nltb-u ez4-Q-twdd-bosw 750 mg-644 mg- 30 mg-1 mg tablet [...] mg total) by mouth daily Active fish alv-ikgyt-6-vit C-vit E 2,000-650-12 mg/2.5 gram emulsion in [...] tablet by mouth once daily 90 tablet 5 Active Active Problems Problem Noted Date Diagnosed Date Coronary artery disease invo lving [place] coronary artery of [place] heart without angina pectoris 02/12/2017 Status post [...] on file 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
--- OUTSIDE RECORDS SUMMARY | 2025-03-22 06:59 | XMS_ITS | Clinical Summary ---
Author Organization [facility] [address] Address [address] [place] [address] Care Team Providers Care Sales Representative Consultant Name Role Phone Brian Perkins MD Primary Care Provider Allergies Active Allergy Reactions Criticality Noted Date [...] Take 2 tablets by mouth daily Active oybbitop-yump-q iq0-V-ubub-bosw 750 mg-644 mg- 30 mg-1 mg tablet [...] mg total) by mouth daily Active fish kil-ggvwt-4-vit C-vit E 2,000-650-12 mg/2.5 gram emulsion in [...] Diagnosed Date Coronary artery disease invo lving [place] coronary artery of [place] heart without angina pectoris 02/12/2017 Status post [...] on file 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
--- OUTSIDE RECORDS SUMMARY | 2025-03-22 06:59 | XMS_ITS | Encounter Summary ---
Author Organization [facility] Healthcare Address [address] [place] [address] Care Team Providers Care Management And Budget Analyst Name Role Phone Brian Perkins MD Primary Care Provider [phone] Encounter Details Date Type Department Care Team (Late st Contact Info) Description 03/11/2018 Orders Only [facility] Health Information Management [address] [place] [address] Scanning, Provider Social History Tobacco Use Types Packs/Day Years Used Date Smoking Tobacco: Never Assessed Alcohol Use Standard Drinks/Week Comments No 0 (1 standard drink = 0.6 oz pur e alcohol) Comments Unknown Sex and Gender Information Value Date Recorded Sex Assigned at Not on file 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
[2025-03-22 09:13] LABS: Anion Gap 10 mmol/L (4-12); Blood Urea Nitrogen 51 mg/dL (7-17); Calcium 9.8 mg/dL (8.4-10.2); Carbon Dioxide 22 mmol/L (22-30); Chloride 109 mmol/L (98-107); Estimated Glomerular Filt Rate 28; Glucose 110 mg/dL (65-110); Potassium 4.4 mmol/L (3.4-5.0); Sodium 141 mmol/L (137-145)
== END 2025-03-22 06:58 | disposition home or self-care (01) ==
PROVIDERS: PCP Internal Medicine; Visit Provider Internal Medicine
DX: R79.89 Other specified abnormal findings of blood chemistry (principal)
CPT/HCPCS: 36415; 80048

== ENCOUNTER 2025-04-27 07:50 | Outpatient (CLI) | payer MEDICARE, SELFPAY ==
--- OUTSIDE RECORDS SUMMARY | 2010-04-17 19:00 | XMS_ITS | Continuity of Care Document ---
Author Organization [facility] [place], [place] Address [address] [place] [address] [place] [address] Phone Care Team Providers Care Assistant Case Manager Name Role Phone Jade Patria Unavailable Unavailable Procedures Procedure Date Visual Field Examination-Professional Au Visual Field Examination(s) Office/outpatient Visit, Est Optic Nerve Head Eval IPO Reduced 15% Office/outpatient Visit, Est Optic Nerve Head Eval IPO Reduced 15% Dilated Retinal Exam W Interpretation De Fundus Photography W/ Report Visual Field Examination(s) Office/outpatient Visit, Est Optic Nerve Head Eval IPO Reduced 15% Office/outpatient Visit, Est Optic Nerve Head Eval Dilated Retinal Exam W Interpretation De Office/outpatient Visit, Est Optic Nerve Head Eval Eye Exam Established Pt Optic Nerve Head Eval No Evidence Of Retinopathy In Prior Year Fundus Photography W/ Report Visual Field Examination(s) Office/outpatient Visit, Est Office/outpatient Visit, Est Advance Directives Directive Yes / No Effective Date File Name No Information Encounters Encounter Description Practice Location Reason(s) For Visit Diagnoses Date Provider Providers Copied on Encounter [facility], [address] [place] [address] [address], [place], [place], [id number], tel:[phone] [facility] No Information 0 Kalie España. [facility] , [address], [place], [place], [facility], . tel:[phone] Referring Provider: Patria Houston, [facility] [address], [place], [facility]. tel:[phone] [facility], [address] [place] [address] [address], [place], [place], [id number], tel:[phone] [facility] No Information 0 Kalie España. [facility] [address], [address], [place], [facility], [place]. tel:[phone] Referring Provider: Patria Houston, [facility] [address], [place], [facility]. tel:[phone] Office/outpat ient Visit, [facility], [address] [place] [address] [address], [place], [place], [id number], [place] tel:[phone] [facility] No Information -201 0 Kalie Pacheco [facility] [address], [address], [place], [facility], [place]. tel:[phone] Office/outpat ient Visit, [facility], [address] [place] [address] [address], [place], [place], [id number], [place] tel:[phone] [facility] No Information Aug-0 8-200 9 Kalie España. [facility] [address], [address], [place], [facility], [place]. tel:[phone] Referring Provider: Patria Houston, [facility] [address], [place], [facility]. tel:[phone] [facility], [address], [place], [place], [id number], [place] tel:[phone] [facility] No Information 1-200 9 Kalie Garcia [facility] , [address], [place], [facility], . tel:[phone] Referring Provider: Patria Houston, [address] [address], [place], [facility]. tel:[phone] Office/outpat ient Visit, [facility], [address] [place] [address] [address], [place], [place], [id number], tel:[phone] [facility] No Information 1 4-200 9 Kalie Garcia [address] [facility] , [address], [place], [facility], . tel:[phone] Office/outpat ient Visit, [facility], [address], [place], [place], [id number], [place] tel:[phone] [facility] No Information Aug-1 2-200 8 Kalie Garcia [address] , [address], [place], [facility], . tel:[phone] Office/outpat ient Visit, [facility], [address] [place] [address] [address], [place], [place], [id number], [place] tel:[phone] [facility] No Information 1 2-200 8 Kalie Garcia [address] , [address], [place], [facility], [place]. tel:[phone] [facility], [address] [place] [address] [address], [place], [place], [id number], [place] tel:[phone] [facility] No Information Apr-0 8-200 8 Kalie Garcia [address] , [address], [place], [facility], . tel:[phone] Referring Provider: Patria Houston, [facility] [address], [place], [facility]. tel:[phone] [facility], [address] [place] [address] [address], [place], [place], [id number], tel:[phone] [facility] No Information 0200 7 Kalie España. [address] [facility] [address], [address], [place], [facility], . tel:[phone] Referring Provider: Patria Houston, [facility] [address], [place], [facility]. tel:[phone] Office/outpat ient Visit, [facility], [address] [place] [address] [address], [place], [place], [id number], tel:[phone] [facility] No Information 7 Kalie España. [facility] [address], [address], [place], [address], . tel:[phone] Office/outpat ient Visit, [facility], [address] [place] [address] [address], [place], [place], [id number], tel:[phone] [facility] No Information 7 Kalie España. [facility] [address] [address], [address], [place], [facility], [place]. tel:[phone] Family History Family Member Type Diagnosis Age At Onset No Information Payers Payer name Insurance type Covered alliance party ID Authoriza tion(s) Medicare [facility] [id number] [place] [id number] Social History Type Description Quantity Date Captured Comments Sex Female Smoking Status No Information Chief Complaint And Reason For Visit No Information Reason For Referral Reason For Referral No Information History Of Present Illness Encounter Date Complaint History Of Prese nt Illness No Information Functional Status Date Functional Assessmen t No Information Instructions Date Instruction Additional Infor mation No Information Assessments Type Assessment Date No Information Patient Care Teams Name Effective Dates (start - stop) Status Members No Information
--- OUTSIDE RECORDS SUMMARY | 2025-04-27 07:57 | XMS_ITS | Encounter Summary ---
Author Organization [facility] Healthcare Address [address] [place] [address] Care Team Providers Care Fruit Ii Farmworker Name Role Phone Brian Perkins MD Primary Care Provider [phone] Encounter Details Date Type Department Care Team (Late st Contact Info) Description 03/11/2018 Orders Only [facility] Health Information Management [address] [place] [address] Scanning, Provider Social History Tobacco Use Types Packs/Day Years Used Date Smoking Tobacco: Never Assessed Alcohol Use Standard Drinks/Week Comments No 0 (1 standard drink = 0.6 oz pur e alcohol) Comments Unknown Sex and Gender Information Value Date Recorded Sex Assigned at Not on file 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
--- OUTSIDE RECORDS SUMMARY | 2025-04-27 07:57 | XMS_ITS | Encounter Summary ---
Author Organization [facility] Healthcare Address [address] [place] [address] Care Team Providers Care Honing Machine Set Up Operator Name Role Phone Brian Perkins MD Primary Care Provider [phone] Encounter Details Date Type Department Care Team (Late st Contact Info) Description 03/22/2025 Orders Only [facility] [place] Information Management [address] [place] [id number] Scanning, Provider Social History Tobacco Use Types Packs/Day Years Used Date Smoking Tobacco: Never Smokeless Tobacco: Never Alcohol Use Standard Drinks/Week Comments No 0 (1 standard drink = 0.6 oz pur e alcohol) Comments Unknown Sex and Gender Information Value Date Recorded Sex Assigned at Not on file 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 Gender Identity Not on file Sexual Orientation Not on file documented as of this encounter Plan of Treatment Not on file documented as of this encounter Procedures Procedure Name Priority Date/Time Associated Diagnosis Comments SCAN - LABS 03/22/2025 documented in this encounter Results * SCAN - LABS (03/22/2025) us Provider Scanning Final Result documented in this encounter Visit Diagnoses Not on filedocumented in this encounter Care Teams Honing Machine Set Up Operator Relationship Specialty Start Date End Date Brian Perkins MD [address] [place] [address] PCP - General 09/23/14 documented as of this encounter
--- OUTSIDE RECORDS SUMMARY | 2025-04-27 07:57 | XMS_ITS | Clinical Summary ---
Author Organization [facility] [place] [address] Address [address] [place] [address] Care Team Providers Care Horizontal Resaw Operator Name Role Phone Brian Perkins MD Primary Care Provider [phone] Allergies Active Allergy Reactions Criticality Noted Date [...] 2 tablets by mouth daily Active glucosam-olga- zao8-V-tubg-viviana sw 750 mg-644 mg- 30 mg-1 mg [...] (15 mg total) by mouth daily Active atorvastatin (LIPITOR) 80 mg tablet Take 1 tablet (80 mg total) by mouth daily Active fish wsv-rmibv-2-vi t C-vit E 2,000-650-12 mg/2.5 gram emulsion [...] a day with meals 03/25/20 24 Active furosemide (LASIX) 20 mg tablet TAKE 1 TABLET BY MOUTH ONCE DAILY IN THE MORNING. DISCONTINUE FUROSEMIDE 40 MG. 03/30/20 25 Active dapagliflozin propanediol (FARXIGA) 10 mg tablet 1 tablet (10 mg total) Active mv,kristal,iron,mn /folic acid/chol (HPQE-MDML-XOB LS, PABA, ORAL) Take by mouth Active cranberry extract 500 mg capsule Take 4,200 mg by mouth Active furosemide (LASIX) 40 mg tablet Take 0.5 tablets (20 mg total) by mouth daily 025 Discontinued(P atient Reported) clopidogreL (PLAVIX) 75 mg tablet Take 1 tablet by mouth once daily 90 tablet 02/20/20 25 025 Discontinued Active Problems Problem Noted Date Diagnosed Date Coronary artery disease invo lving [place] coronary artery of [place] heart without angina pectoris 02/12/2017 Status post coronary artery stent placement 01/31 Encounters Date Type Department Care Team Description 04/12/2025 2:45 PM CDT Office Visit [facility] [address] [place] [id number] Poncho Ma MD Coronary artery disease involving [place] coronary artery of [place] heart without angina pectoris (Primary Dx); Status post coronary artery stent placement 03/22/2025 Orders Only [facility] [place] Health Information Management [address] [place] [address] Scanning, Provider from Last 3 Months Surgical History Surgery Date Site/Laterality Comments CORONARY [...] on file 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 Gender Identity Not on file Sexual Orientation Not on file Obstetrics History Last Filed Vital Signs Vital Sign Reading Time Taken Comments Blood Pressure 136/68 04/12/2025 2:43 PM CDT Pulse 75 04/12/2025 2:43 PM CDT Temperature - - Respiratory Rate 12 02/12/2017 2:46 PM CDT Oxygen Saturation 97% 04/12/2025 2:43 PM CDT Inhaled Oxygen Concentration - - Weight 98.8 kg (217 lb 14.4 oz) 04/12/2025 2:43 PM CDT Height 167.6 cm (5' 6) 04/12/2025 2:43 PM CDT Body Mass Index 35.17 04/12/2025 2:43 PM CDT Plan of Treatment Health Maintenance Due Date Last Done Comments Depression Screening 1942 Fall Risk Assessment 1942 Osteoporosis Screening-Bone Density Scan 1942 Hepatitis B Screening 1960 Zoster Vaccine (1 of 2) 1992 Well Visit 65+ 2007 Influenza Vaccine (#1) 2025 7, 06/03/2014, 06/01/2013, Additional history exists DTaP/Tdap/Td Vaccine (2 - Td or Tdap) 04/20/2029 04/20/2019 Pneumococcal vaccine 65+ Completed 06/15/2019, 05/2018 Procedures Procedure Name Priority Date/Time Associated Diagnosis Comments SCAN - LABS 03/22/2025 from Last 3 Months Results * SCAN - LABS (03/22/2025) us Provider Scanning Final Result from Last 3 Months Insurance MEDICARE MEDICARE [facility] MEDICARE SUPPLEMENT Member Subscriber Plan / Payer (Ef fective 2007-Present) Name:Kristin Lyle Relation to Subscriber:Self Name:Kristin Lyle Payer ID:[id number] Type:COMMERCIAL Address: [address] [place] [id number] Care Teams Horizontal Resaw Operator Relationship Specialty Start Date End Date Brian Perkins MD [address] [place] [address] PCP - General 09/23/14
[2025-04-27 08:42] LABS: Anion Gap 9 mmol/L (4-12); Blood Urea Nitrogen 35 mg/dL (7-17); Calcium 9.7 mg/dL (8.4-10.2); Carbon Dioxide 25 mmol/L (22-30); Chloride 110 mmol/L (98-107); Estimated Glomerular Filt Rate 52; Glucose 118 mg/dL (65-110); Potassium 4.1 mmol/L (3.4-5.0); Sodium 144 mmol/L (137-145)
== END 2025-04-27 07:51 | disposition home or self-care (01) ==
PROVIDERS: PCP Internal Medicine; Visit Provider Internal Medicine
DX: N18.9 Chronic kidney disease, unspecified (principal); Z79.899 Other long term (current) drug therapy
CPT/HCPCS: 36415; 80048

== ENCOUNTER 2025-08-06 09:50 | Outpatient (CLI) | payer MEDICARE, SELFPAY ==
--- OUTSIDE RECORDS SUMMARY | 2025-08-06 09:46 | XMS_ITS | Encounter Summary ---
Author Organization [facility] Healthcare Address [address] [place] [address] Care Team Providers Care Forestry Biology Specialist Name Role Phone Brian Perkins MD Primary Care Provider [phone] Encounter Details Date Type Department Care Team (Late st Contact Info) Description 03/11/2018 Orders Only [facility] Health Information Management [address] [place] [id number] Scanning, Provider Social History Tobacco Use Types Packs/Day Years Used Date Smoking Tobacco: Never Assessed Alcohol Use Standard Drinks/Week Comments No 0 (1 standard drink = 0.6 oz pur e alcohol) Comments Unknown Sex and Gender Information Value Date Recorded Sex Assigned at Not on file 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
--- OUTSIDE RECORDS SUMMARY | 2025-08-06 09:46 | XMS_ITS | Clinical Summary ---
Author Organization [facility] [place] [address] Address [address] [place] [address] Care Team Providers Care Piano Mover Name Role Phone Brian Perkins MD Primary Care Provider [phone] Allergies Active Allergy Reactions Criticality Noted Date [...] oral route every day 0 3 Active multivitamin-min erals-lutein (CENTRUM SILVER) tablet take 1 tablet by oral route every day 0 3 Active Additional Information Patient not taking.Reported on 04/07/2024 sertraline (ZOLOFT) 50 mg tablet take 1 tablet by oral route every day 0 0 6 Active potassium chloride ER (KLOR-CON,K-DUR) 10 mEq CR tablet Take 1 tablet/capsule (10 mEq total) by mouth every other day Active vitamin E 400 unit capsule Take 1 capsule (400 Units total) by mouth daily Active calcium citrate-vitamin D3 (CITRACAL WITH D) 315-250 mg-unit per tablet Take 2 tablets by mouth daily Active jrrblkyw-ddzo-mp a6-M-ihde-bosw 750 mg-644 mg- 30 mg-1 mg tablet Take 2 tablets by mouth as directed. Active latanoprost (XALATAN) 0.005 % ophthalmic solution Administer 1 drop into both eyes nightly Active acetaminophen (TYLENOL 8 HOUR ORAL) Take 1 tablet by mouth 4 (four) times a day Active pioglitazone (ACTOS) 15 mg tabletIndication s:type 2 diabetes mellitus Take 1 tablet (15 mg total) by mouth daily Active atorvastatin (LIPITOR) 80 mg tablet Take 1 tablet (80 mg total) by mouth daily Active fish rrx-eyhue-5-vit C-vit E 2,000-650-12 mg/2.5 gram emulsion in [...] times a day with meals 4 Active furosemide (LASIX) 20 mg tablet TAKE 1 TABLET BY MOUTH ONCE DAILY IN THE MORNING. DISCONTINUE FUROSEMIDE 40 MG. 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
[2025-08-06 09:53] LABS: Hematocrit 41.8 % (37.0-47.0); Hemoglobin 13.6 g/dL (12.0-15.0); Immature Granulocyte Percent A 0.8 % (0-0.5); Lymphocytes Absolute Auto 1.57 K/mm3 (0.9-3.2); Mean Corpuscular HGB Conc 32.5 g/dl (32-36); Mean Corpuscular Hemoglobin 31.5 pg (26-34); Mean Corpuscular Volume 96.8 fl (80-100); Nucleated Red Blood Cells Absolute Auto 0.000 K/mm3 (0.0-0.012); Nucleated Red Blood Cells Perc 0.0 % (0.0-0.2); Platelet Count Result 178 k/mm3 (150-375); Red Blood Count 4.32 M/mm3 (4.2-5.4); White Blood Count 6.4 K/mm3 (4.5-10.0)
[2025-08-06 10:06] LABS: Hemoglobin A1C 6.5 % (<5.7)
[2025-08-06 10:14] LABS: Alanine Aminotransferase 36 U/L (6-35); Albumin Level 4.3 g/dL (3.5-5.1); Alkaline Phosphatase 99 U/L (38-126); Anion Gap 7 mmol/L (4-12); Aspartate Amino Transferase 34 U/L (14-36); Bilirubin,Total 0.8 mg/dL (0.2-1.3); Blood Urea Nitrogen 33 mg/dL (7-17); Calcium 9.7 mg/dL (8.4-10.2); Carbon Dioxide 25 mmol/L (22-30); Chloride 109 mmol/L (98-107); Cholesterol 134 mg/dL (0-200); Estimated Glomerular Filt Rate 43; Glucose 130 mg/dL (65-110); HDL Direct 44 mg/dL; Potassium 4.2 mmol/L (3.4-5.0); Sodium 141 mmol/L (137-145); Total Protein 7.2 g/dL (6.3-8.2); Triglycerides 110 mg/dL (<150)
[2025-08-06 10:37] LABS: Add Urine Microscopic? YES; Appearance Urine Cloudy (Clear); Glucose Urine UA 3+ mg/dL (Negative); Leukocyte Esterase Ur 2+ LEU/UL (Negative); Need Manual Microscopic Reviewed; Nitrate Urine Positive (Negative); Non Pathogenic Casts 0-2; Specific Grav Ur 1.020 (1.001-1.035)
[2025-08-06 10:46] LABS: Thyroid Stimulating Hormone 0.105 uIU/mL (0.465-4.680)
== END 2025-08-06 09:51 | disposition home or self-care (01) ==
PROVIDERS: PCP Internal Medicine; Visit Provider Internal Medicine
DX: E78.2 Mixed hyperlipidemia (principal); Z13.29 Encounter for screening for other suspected endocrine disorder; E11.9 Type 2 diabetes mellitus without complications; I10 Essential (primary) hypertension; Z79.899 Other long term (current) drug therapy
CPT/HCPCS: 36415; 80053; 80061; 81001; 83036; 84443; 85025; 87077; 87086; 87186

== ENCOUNTER 2025-08-09 12:22 | Outpatient (CLI) | payer MEDICARE, SELFPAY ==
[2025-08-09 13:30] LABS: Free T4 Free Thyroxine 1.26 ng/dL (0.78-2.19)
== END 2025-08-09 12:23 | disposition home or self-care (01) ==
PROVIDERS: PCP Internal Medicine; Visit Provider Internal Medicine
DX: R53.83 Other fatigue (principal)
CPT/HCPCS: 36415; 84439